=== PATIENT | female | born 1955 ===

== ENCOUNTER → 2021-06-07 11:11 | Outpatient (CLI) | payer OTHER, SELFPAY ==
[2021-06-07 15:27] LABS: COVID19 -Nasal RAPID Negative (Negative)
== END ==
PROVIDERS: Referring Provider Physician Assistant; Visit Provider Physician Assistant
DX: Z20.822 Contact with and (suspected) exposure to COVID-19 (principal); Z01.812 Encounter for preprocedural laboratory examination
CPT/HCPCS: 87635

== ENCOUNTER 2021-06-09 08:37 | Observation (INO) | payer OTHER, SELFPAY ==
[2021-06-01 12:43] VITALS: BMI 43.6
[2021-06-09] VITALS (15 sets, daily range): BP systolic 115–156; BP diastolic 60–102; PULSE 68–143; RESP 8–18; TEMP 36.2–36.8; O2SAT 80–97; BMI 43.6
--- NOTE | 2021-06-09 06:00 | DI.RAD.S_ITS ---
PROCEDURE: XR KNEE LT 1TO2V INDICATIONS: postop prosthesis placement TECHNIQUE: 2 view(s) of the knee acquired. COMPARISON: [facility] [place], [place], XR KNEE ARTHRITIC SERIES LT, 05/20/2021, 15:19. FINDINGS: Bones: Patient is status post knee joint arthroplasty. Hardware components are in expected positions. Visualized bony structures are intact. Soft tissues: Overlying postoperative changes are noted. IMPRESSION: Expected immediate postoperative appearance of right TKA. Dictated by: Khurram Bingham [facility] Interpreted: Javad Herrera MD on 06/09/2021 at 15:29 Transcribed by: SADIE on 06/09/2021 at 15:30 Approved by: Javad Herrera M.D. on 06/09/2021 at 17:04
[2021-06-09] MEDS: PREGABALIN 75 MG CAPSULE PO (09:26)
[2021-06-09] MEDS: ACETAMINOPHEN 325 MG TABLET 975 MG PO (09:26)
[2021-06-09] MEDS: CELECOXIB 200 MG CAPSULE PO (09:27)
[2021-06-09] MEDS: LACTATED RINGERS 1,000 ML 42 ML IV ×2 (09:56→13:24)
[2021-06-09] MEDS: VANCOMYCIN 1,000 MG/200 ML PIGGYBACK 200 MG IV (10:24)
--- NOTE | 2021-06-09 11:32 | PM.PREOP ---
Pre-operative Note COVID-19 COVID-19 status: Negative Interval Note History & Physical reviewed/Exam performed by Physician: Yes Changes to H&P: No
--- NOTE | 2021-06-09 11:33 | P.OP_ITS ---
Operative Date/Time/Diagnoses Date of procedure: 06/09/21 Time of procedure: 16:00 Pre-op diagnosis: left knee OA Post-op diagnosis: same Procedure & Clinicians Procedure: left total knee arthroplasty Same procedure as scheduled: Yes Indications: The patient has had progressively worsening left knee pain with radiographic changes consistent with arthritis. Non-operative management has failed and the patient has requested total knee replacement. The risks, benefits and alternatives to surgery were discussed with the patient prior to proceeding. Risks discussed included, but were not limited to, failure to relieve pain, stiffness, infection, nerve damage, deep venous thrombosis, pulmonary embolism, stroke, coma, heart attack, permanent paralysis and , as well as the potential need for eventual revision of the prosthetic. Surgeon: [facility] Manager: Janice Gasca Anesthesia Type: Spinal Operative Notes Findings: Severe left knee arthritis, good stability Closure Type: primary Specimen(s): none sent Prosthetic devices, grafts, tissues, transplants, or devices: Ruiz and nephew per [employer] BCS 2 size 6 Oxinium femur, size 4 tibia, +9 poly, 35 x 7.5 mm patella Applied: drain(s) Estimated Blood Loss (mL): 250 Blood products transfused: none Tourniquet time (min): 24 Procedure in detail: The patient was seen in the pre-operative area, where the patient identified the left knee as the operative site and this was marked with my initials. The patient received pre-operative antibiotics, and was taken to the operating room and placed on the operative table in the supine position. After satisfactory anesthesia, a interactive multimedia designer out was performed. The left leg was encircled with a tourniquet about the proximal thigh, and the leg was prepared from the toes to the tourniquet with ChloroPrep in the usual fashion and draped through sterile drapes. The leg was elevated and exsanguinated with Eschmark bandage and the tourniquet inflated to [250] mmHg pressure. The knee was approached through an approximately 18 cm incision centered over the patella and carried into the knee through a medial parapatellar arthrotomy. A portion of the medial and lateral meniscus was resected. Soft tissue was carefully mobilized around the patella the patella was measured with a caliper. There was moderate bleeding and was felt to be a venous tourniquet. We deflated the tourniquet early and reinflated to briefly during cementing. Bone Was resected from the patella and the patellar height was reconstituted with up an appropriate sized patellar component. A cover was then placed on the patella. A small amount of additional medial and lateral meniscus was resected. The distal femur was cut at 5?. A [+2] cut was used. It looked like an appropr iate distal femoral cut and the cut was made without difficulty. An extramedullary guide was used for the tibial cut. 10 mm was resected off the least affected side.The tibia was prepared. The rotation was assessed. The patient was placed in extension residual medial and lateral meniscus as well as any residual bone was carefully resected. [No] additional tibia was resected. Hemostasis was achieved especially posteriorly. Additional local was injected into the posterior capsule. The extension gap was assessed and additional releases for gap balancing were performed as necessary. It was checked with the gap account executive healthcare. The femoral component was trial was placed and the notch was finished. The rotation was assessed and the appropriate size femoral guide was placed on the distal femur and finishing cuts were made. There is no evidence of notching. The anterior, posterior and chamfer cuts were then made. The posterior osteophytes and soft tissues were then removed. The posterior capsule was injected with part of a mixture of 60 ml 0.25% Marcaine mixed with 20 ml Exparel for post operative pain control. The remainder of this mixture was injected into the capsule and subcutaneous tissues during cement curing. The tibial and femoral components were then placed and the knee placed through a range of motion. Range of motion was [0-125], with good stability throughout the range. The trials were then removed, and the tibia was finished. The bone was prepared with pulsatile lavage, and dried with a sponge. Cement was applied and the final prosthetics placed. Excess cement was removed during and after cement curing. A brief Betadine soak was performed. After confirming there was no extruded cement posteriorly, the final tibial insert was placed. The knee was copiously irrigated and the tourniquet deflated. Hemostasis was obtained with the werewolf system]. A drain was placed and brought out superolaterally. The capsule was closed with interrupted nonabsorbable suture. The subcutaneous layer was closed with barbed sutures, and the skin with a running 3-0 V-Lock suture and Surgical glue. An Aquacel Ag dressing was applied and the patient was taken to recovery having tolerated the procedure well. Complications: none Post-operative Condition: stable Disposition: Acute Care Plan for aftercare: The patient will be maintained on a standard total knee replacement protocol with weight bearing as tolerated. The patient will receive aspirin and sequential compression devices for DVT prophylaxis. The patient will be discharged home when safe for the home environment.
[2021-06-09] MEDS: CEFAZOLIN 1 GM VIAL 2 GM IV ×2 (12:05→21:47)
[2021-06-09] MEDS: TRANEXAMIC ACID 1,000 MG VIAL 1000 MG INJ ×2 (12:10→14:00)
--- NOTE | 2021-06-09 12:34 | SUR.OPER ---
Supine on padded OR bed. Pillow under head, arms secured on padded armboards <90 degree abduction. Safety belt across torso. Non-operative leg secured with tape over blanket over lower leg, gel pad under right heel. Operative leg secured in DeMayo positioner. Operative leg in control of hte Surgeon. Foam padded brace at thigh of operative leg.
[2021-06-09] MEDS: BUPIVACAINE LIPOSOME 266 MG/20 ML VIAL INJ (12:40)
[2021-06-09] MEDS: BUPIVACAINE 0.25% (PF) 60 ML, EPINEPHrine 0.3 MG INJ (12:40)
[2021-06-09] MEDS: SODIUM CHLORIDE IRRIG SOLUTION 250 ML, POVIDONE-IODINE SPONGE STICKS 1 APPLIC IRR (12:41)
[2021-06-09] MEDS: dilTIAZem 5 MG/ML SDV 25 MG IV (14:02)
--- NOTE | 2021-06-09 16:07 | SUR.PHASEI ---
1605 hrs: Dr Peng contacted by phone for advisement of increasing heart rate and respiratory rate of 8-10. Dr peng states he will contact floor and recommend that diltiazem be given PO this evening, states Pt can be transferred to Acute Care.
[2021-06-09] MEDS: OXYCODONE IR 5 MG TABLET PO (16:26)
--- NOTE | 2021-06-09 16:38 | SUR.PHASEI ---
1625 hrs: Telephone report to TATA Leon. Pt in bed transported to room 215 by RNs.
[2021-06-09] MEDS: dilTIAZem CD 180 MG CAP PO (18:20)
[2021-06-09] MEDS: LACTATED RINGERS 1,000 ML 100 ML IV (18:20)
--- NOTE | 2021-06-09 19:44 | PC.NURSE ---
1645: pt to room 215, report received from JEWEL SUPERVISOR Miles. Sandepe PAYTON at bedside doing admission. Pt very sleepy. HR controlled now. Continuous pulse ox with sats 97-98%. HR in 90's. HR irregular/pt with history of afib. Left knee with nivia wrap intact and hemovac- unclamped at 1630 by Sandeep PAYTON and draining sanguinous fluid. BOUBACAR pump intact to left knee. 1800: Pt awake enough to take oral Diltiazem. IV fluids LR started at 100 ml/hr. Assisted pt with dinner tray set up. Denies nausea. Pt reports she does have sensation in both feet and also her upper left thigh.
--- NOTE | 2021-06-09 20:39 | PM.CN ---
History of Present Illness Consult details Date Patient Seen: 06/09/21 Time Patient Seen: 16:00 Chief complaint: OPB Reason for consult: afib with RVR Requesting provider: Pamela Ruiz Narrative: Ms. Evangelista is a 65W with PMH afib, hypothyroidism, DM, NURA who came in to the hospital for an elective left knee osteoarthritis. She did not take her metoprolol or diltiazem this today. During surgery she became tachycardic, she did get 10mg IV metoprolol, then did get IV esmolol, and IV labetalol with continued tachycardia in the 120s-130s. After the procedure she received IV diltiazem with good improvement. Medicine was consulted for atrial fibrillation with RVR When the patient did get to the floor she was in afib, but her heart rate had improved to the 80s-90s. She was sleepy and lethargic from being immediately post-op. She had no chest pain or shortness of breath. Her oral medications for rate control were ordered to be given now as she had missed them earlier. Meds Home Medications and Allergies Home Medications Medication Instructions Recorded Confirmed Type acetaminophen 500 mg tablet 1,000 mg PO BID PRN 06/01/21 06/09/21 History (Acetaminophen Extra Strength) diltiazem HCl 180 mg capsule,24 180 mg PO QAM 06/01/21 06/09/21 History hr,extended release levothyroxine 200 mcg capsule 200 mcg PO DAILY 06/01/21 06/09/21 History losartan 50 mg tablet 50 mg PO BEDTIME 06/01/21 06/09/21 History metformin 500 mg tablet 500 mg PO BID 06/01/21 06/09/21 History metoprolol succinate 50 mg 50 mg PO BEDTIME 06/01/21 06/09/21 History tablet,extended release 24 hr paroxetine HCl 40 mg tablet 40 mg PO DAILY 06/01/21 06/09/21 History rivaroxaban 20 mg tablet (Xarelto) 20 mg PO DAILY 06/01/21 06/09/21 History rosuvastatin 40 mg tablet 40 mg PO BEDTIME 06/01/21 06/01/21 History Allergies Allergy/AdvReac Type Severity Reaction Status Date / Time lisinopril [From Zestril] AdvReac Intermediate Gastrointestinal Verified 06/01/21 13:10 Upset Review of Systems Review of Systems Narrative: 14 systems reviewed and negative aside from HPI Exam Vital Signs (past 8 hours): - 06/09/21 14:37 06/09/21 14:42 06/09/21 14:47 Temperature 98.3 F Pulse Rate 122 H 118 H 109 H Respiratory Rate 12 10 L 12 Blood Pressure 146/93 H 133/83 148/82 H Pulse Oximetry 80 L 95 97 06/09/21 14:52 06/09/21 14:57 06/09/21 15:12 Temperature 97.4 F L 97.1 F L Pulse Rate 114 H 117 H 120 H Respiratory Rate 11 L 12 10 L Blood Pressure 141/102 H 139/91 H 149/60 H Pulse Oximetry 97 97 95 06/09/21 15:27 06/09/21 15:43 06/09/21 15:57 Temperature 97.4 F L 97.4 F L 97.6 F Pulse Rate 128 H 143 H 68 Respiratory Rate 10 L 10 L 8 L Blood Pressure 128/92 H 130/90 143/88 H Pulse Oximetry 95 95 96 06/09/21 16:12 06/09/21 16:40 06/09/21 17:55 Temperature 97.4 F L Pulse Rate 122 H 82 95 H Respiratory Rate 11 L 12 15 Blood Pressure 152/80 H 156/81 H 153/81 H Pulse Oximetry 95 97 97 Oxygen Delivery Method Nasal Cannula Oxygen Flow Rate 2 Narrative Exam Narrative: GEN: no acute distress HEENT: moist mucous membranes, PERRL NECK: trachea midline, no JVD CV: irregular, no murmurs PULM: clear, bilaterally, no wheezes/rhonchi/rales ABD: soft, nontender, nondistended, no organomegaly EXT: warm and well perfused, no edema NEURO: awake, but lethargic [facility] Medical History (Updated 06/01/21 @ 13:46 by Love Rios RN) Afib (08/2017) Anesthesia Anxiety Breast cancer, right (~2009) Cataract, left eye Depression Diabetes (~2017) Leon's disease 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 Evangelista is a 65W with PMH permanent, chronic atrial fibrillation who presented for elective L TKA who developed intraoperative RVR. 1. Atrial fibrillation with RVR -likely secondary to not taking home meds this AM -rate improved with IV medications -patient will be reordered for home medications and get these medications tonight -no need to adjust medications for now Patient is currently rate controlled and back on home medications. No further adjustment needed currently. Will plan to sign off, please consult with further questions. Code: Full Proxy: Elysenicholas Thomas, daughter Time Spent With Patient Critical Care time: I spent a total of [] minutes of critical care time on this patient's care today; this time is exclusive of procedural time.
[2021-06-09] MEDS: DOCUSATE 100 MG CAPSULE PO (21:48)
[2021-06-09] MEDS: ATORVASTATIN 20 MG TABLET 80 MG PO (21:48)
[2021-06-09] MEDS: LOSARTAN 50 MG TABLET PO (21:48)
[2021-06-09] MEDS: ACETAMINOPHEN 325 MG TABLET 650 MG PO (21:48)
[2021-06-09] MEDS: METOPROLOL ER 50 MG TABLET PO (21:48)
[2021-06-09] MEDS: METFORMIN HCL 500 MG TABLET PO (21:48)
[2021-06-10] VITALS (8 sets, daily range): BP systolic 84–156; BP diastolic 56–80; PULSE 84–112; RESP 16–18; TEMP 35.6–36.4; O2SAT 92–95
[2021-06-10] MEDS: OXYCODONE IR 10 MG TABLET PO ×2 (00:07→03:05)
[2021-06-10] MEDS: CEFAZOLIN 1 GM VIAL 2 GM IV (03:30)
[2021-06-10 05:38] LABS: Hematocrit 40.1 % (36-46); Hemoglobin 12.9 g/dL (12.0-16.0)
[2021-06-10] MEDS: LEVOTHYROXINE 100 MCG TABLET 200 MCG PO (06:20)
[2021-06-10] MEDS: OXYCODONE IR 5 MG TABLET PO ×3 (06:20→22:21)
--- NOTE | 2021-06-10 09:12 | PM.DS.1 ---
History of Present Illness History of Present Illness Date Patient Seen: 06/10/21 Time Patient Seen: 09:12 Chief complaint: Left knee pain s/p left TKA Narrative: The patient is complaining of bymg-so-fwxhpssi left knee pain this morning. She denies any new numbness or tingling, and notes in fact that her preoperative numbness has resolved. No fevers, chills, night sweats. No nausea or vomiting. Overall she is feeling well and would like to work with physical therapy and hopefully be discharged home today Discharge Providers Provider Discharge Date: 06/10/21 Consults: 06/01/21 13:55 Consult to Anesthesiology Routine Comment: Consulting Provider: Anesthesiologist Reason for consultation: Surgeon requested re: Comorbidities 06/09/21 06:00 Consult to Anesthesiology Routine Comment: Consulting Provider: Anesthesiologist Reason for consultation: Regional block for post operative pain control 06/09/21 09:25 Consult to Respiratory Therapy Evaluate & Treat Comment: Physician Instructions: Evaluate and treat 06/09/21 16:40 Consult to Discharge Planning Routine Comment: Consult to Physical Therapy Evaluate & Treat Comment: Physician Instructions: postop TKA protocol Consult to Respiratory Therapy Evaluate & Treat Comment: Physician Instructions: Evaluate and treat Discharge provider: Janice Gasca PA-C Summary Hospital Course Discharge Diagnosis: Left knee osteoarthritis Hospital Course: Date of procedure: 06/09/21 Time of procedure: 16:00 Procedure & Clinicians Procedure: left total knee arthroplasty Same procedure as scheduled: Yes Indications: The patient has had progressively worsening left knee pain with radiographic changes consistent with arthritis. Non-operative management has failed and the patient has requested total knee replacement. The risks, benefits and alternatives to surgery were discussed with the patient prior to proceeding. Risks discussed included, but were not limited to, failure to relieve pain, stiffness, infection, nerve damage, deep venous thrombosis, pulmonary embolism, stroke, coma, heart attack, permanent paralysis and , as well as the potential need for eventual revision of the prosthetic. Surgeon: Pamela Ruiz Sales Account Specialist: Janice Gasca Anesthesia Type: Spinal Operative Notes Findings: Severe left knee arthritis, good stability Closure Type: primary Specimen(s): none sent Prosthetic devices, grafts, tissues, transplants, or devices: Ruiz and nephew per [employer]CS 2 size 6 Oxinium femur, size 4 tibia, +9 poly, 35 x 7.5 mm patella Applied: drain(s) Estimated Blood Loss (mL): 250 Blood products transfused: none Tourniquet time (min): 24 Status at Discharge Cognitive/behavioral status at discharge: oriented Functional status at discharge: uses cane/walker Overall status at discharge: patient is progressing back to baseline Exam Vital Signs (past 8 hours): - 06/10/21 03:10 Temperature 97.5 F L Pulse Rate 112 H Respiratory Rate 18 Blood Pressure 115/80 Pulse Oximetry 92 Oxygen Delivery Method Nasal Cannula Oxygen Flow Rate 2 Narrative Exam Narrative: Pleasant 65-year-old female, resting comfortably in bed, no acute distress. Dressing is clean, dry, intact. Bilateral lower extremity motor functions are grossly intact. Sensation is grossly intact to light touch in bilateral lower extremities. Calves are soft, nontender to palpation. 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 HLD (hyperlipidemia) HTN (hypertension) Hypothyroid NURA (obstructive sleep apnea) Osteoarthritis PTSD (post-traumatic stress disorder) Seizures TMJ (dislocation of temporomandibular joint) Surgical History History of cardiac cath (~04/2021) History of cholecystectomy History of hysterectomy History of lumpectomy of right breast Hx of laparoscopy Hx of tonsillectomy Social History household members: none Smoking Status: Former smoker alcohol intake: current Discharge Assessment & Plan Assessment and Plan Assessment: Stable status post left total knee arthroplasty Plan of Treatment: -mobilize with PT. Weightbearing as tolerated with front wheel walker -continue with current pain regimen -resume Xarelto on 06/11/2021 -planning on DC home today when cleared by PT and hospitalist Discharge Plan Discharge Plan Patient Disposition: Home Discharge orders & Medications Discharge Orders: Discharge (Order); Ordered 06/10/21 Ordered By: Janice A Walker Prescriptions: New acetaminophen 500 mg capsule 500 mg PO Q4H PRN (Reason: fever or pain) Qty: 90 RF: 0 docusate sodium 100 mg Capsule 100 mg PO BID PRN (Reason: Constipation from narcotic pain med) Qty: 20 RF: 0 oxycodone 10 mg Tablet See Rx Instructions .ROUTE .COMPLEX PRN (Reason: Pain, Severe (7-10)) Qty: 42 RF: 0 Continued losartan 50 mg Tablet 50 mg PO BEDTIME RF: 0 metformin 500 mg Tablet 500 mg PO BID RF: 0 diltiazem HCl 180 mg Capsule,Extended Release 24 Hr 180 mg PO QAM RF: 0 metoprolol succinate 50 mg Tablet Extended Release 24 Hr 50 mg PO BEDTIME RF: 0 paroxetine HCl 40 mg Tablet 40 mg PO DAILY RF: 0 rosuvastatin 40 mg Tablet 40 mg PO BEDTIME RF: 0 Xarelto 20 mg Tablet 20 mg PO DAILY RF: 0 levothyroxine 200 mcg Capsule 200 mcg PO DAILY RF: 0 Discontinued acetaminophen [Acetaminophen Extra Strength] 500 mg Tablet 1,000 mg PO BID PRN (Reason: Pain) RF: 0 Follow up/Referrals: Pamela Ruiz MD [Physician] - (10-14 days for postoperative visit) Diet/Activity/Treatments Diet: Diet as Tolerated and Regular Other treatments: Medications: -OTC Tylenol 500 mg 1 tablet every 4 hours as needed for pain/fever. Max 6 tablets per day. -Oxycodone 10 mg take 0.5-1 tablets every 4 hours as needed for moderate-severe pain (narcotic pain medication). -As needed medications: -Ducolax and /or MiraLax as needed for constipation from narcotic pain medications. -Pepcid AC as needed for stomach upset (usually from aspirin or ibuprofen). -Resume your normal Xarelto (this will prevent blood clots) Dressing/Wound care: -Remove the Clif wrap 48 hours after surgery. -Keep Dayan dressing in place until postoperative follow-up office visit. -Okay to shower. Keep wound out of direct water stream. No soaking or submerging until all the scabs fall off (approximately 6 weeks). -Please call the office if dressing becomes wet, soiled, or saturated. Activities: -Weight-bearing as tolerated. Use front wheeled walker, and progress to cane when safe. -Continue with home exercises as directed by your physical therapist. -Elevate ?toes above the nose if you have significant swelling in your lower leg. (A wedge pillow is easiest.) -Ice your incision as needed for pain/inflammation/swelling. Protect your skin with a folded pillowcase. Follow-up: -Follow-up with your surgeon or PA in the office in 10-14 days after surgery. -Follow-up with your surgeon 6 weeks postoperatively. Call the office if you have chest pain, shortness of breath, significant swelling that will not resolve with elevating, fever over 101?, significantly worsening pain. [facility]: [phone] Skin/Wound/Dressing Care Report to your healthcare provider any signs of infection, such as:: chills, fever, night sweats, unusual drainage and unusual redness Visit Report/Discharge Packet Instructions: DI for Knee Replacement Stand Alone Forms: Surgery Discharge Discharge Data Attending Provider: Pamela Ruiz VTE Deep Vein Thrombosis/Pulmonary Embolism Present on Admission: No
[2021-06-10] MEDS: ACETAMINOPHEN 325 MG TABLET 650 MG PO ×3 (09:14→21:23)
[2021-06-10] MEDS: PARoxetine 20 MG TABLET 40 MG PO (09:15)
[2021-06-10] MEDS: dilTIAZem CD 180 MG CAP PO (09:15)
[2021-06-10] MEDS: METFORMIN HCL 500 MG TABLET PO ×2 (09:15→21:24)
[2021-06-10] MEDS: DOCUSATE 100 MG CAPSULE PO ×2 (09:16→21:24)
--- NOTE | 2021-06-10 10:42 | CM.DANOTE ---
DCP: Case received, EMR reviewed and met with patient. Introduced self and role. Was able to obtain information regarding patient's baseline activity status prior to her surgery, as well as her current living situation. DCP assessment completed with information currently available. Patient is a 65 year old female who admitted yesterday morning to the care of the orthopedic team. PCP: Dr. Ballesteros, Residency clinic at [facility]. Payer: confirmed: [employer]. Patient came to the hospital via private vehicle for a surgical procedure. Patient had left knee arthroplasty. Patient has history of osteoarthritis. Met with patient in her room. She is alert and oriented, pleasant. Patient resides in [facility] alone. 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 Patient does have a walker for home use. She is independent at her baseline. [facility] was already ordered for patient from the orthopedic office according to patient. Patient indicated her sister, Debora, should be able to assist her when she goes home. P: Patient has discharge orders for home today. Will ask Angelika assistant professor of physics, to fax [facility] a DC Summary. She will work again with P.T. before discharge as well. Nancy Marte RN/Fraud Analyst Discharge Planning/Care Management CM Discharge Assessment Start: 06/10/21 10:39 Freq: Status: Active Protocol: Document 06/10/21 10:39 (Rec: 06/10/21 10:42 [id number]) Discharge Planning Assessment Assigned [place] Nancy Marte RN/Fraud Analyst Advance Directives? Yes Advance Directives on File No History Provided By Patient,Medical Record Prior Living Arrangements House Household Members none Type of transporation used prior to Drives own vehicle admit DME Already Rented / Owned FWW / Walker Patient/Family Preference Home with Home Health Comment [facility] has been prearranged by orthopedic office. Barriers to Discharge No Discharge Plan Home with Home Health Transportation Arrangement Friend or family member Referrals Initiated None needed Whiteboard Updated in Patient Room with Yes name and ext. # of Oyster Tonger Review Status In Process Next Review Type Continued Stay Review Pre-Anesthesia Assessment Start: 06/01/21 12:43 Freq: Status: Active Protocol: Document 06/01/21 12:43 CAB (Rec: 06/01/21 13:55 CAB [id number]) Pre-Anesthesia Assessment Patient Information Reviewed Via Phone Assessment Assessment Completed With Patient H&P Completed Within 30 Days Yes Diagnostic Results BMP/CMP,CBC,EKG Comment Outside labs/EKG scanned, COVID screen-needs to schedule Primary Care Provider Sara Seen Specialist in Last 12 Months Yes Specialist Seen Printed Circuit Board Pcb Designer,Orthopedist Primary Language Maori Abstractor Required No Height 5 ft 4 in Weight 254 lb Body Mass Index (BMI) 43.6 Hearing Ability Normal Visual Assist Glasses Dentition Type Teeth, Natural Present Barriers to Learning None Hx Anesthesia Reactions No: NURA-does not tolerate CPAP Hx Family Anesthesia Reaction No Hx Malignant Hyperthermia No Hx Blood Transfusions No Anesthesia Review Requested Yes: PAC courtesy re: Comorbidities alcohol intake current alcohol intake frequency holidays/special occasions only Smoking Status Former smoker how long ago did patient quit smoking Quit in high school Substance Use Type does not use Pain Present Pain Reported Musculoskeletal Symptoms Abnormal Gait,Back Pain, Difficulty Walking,Joint Pain History of Falling (Recent or History of Yes ) Patient is completely paralyzed or No completely immobile Prosthesis or Orthotic Device Front Wheel Walker Mental Status Oriented to own ability Is patient on oxygen? No Does patient have HAN/SOB No Hx Sleep Apnea Yes: Does not tolerate CPAP CPAP/BIPAP use prescribed not used Currently Taking a Beta Ivan Yes: Metoprolol Can You Climb a Flight of Stairs Without No: SOB r/t hip pain SOB Hx Chest Pain Yes Hx SOB No Hx Syncope or Dizziness Yes: Syncope, pt feels r/t anxiety, afib, last episode within the year Anti-Coagulant Therapy Yes: Xarelto-pt advised to hold 5-[address] Ruiz Has a Printed Circuit Board Pcb Designer Yes: Dr. Silver visit03/03/21 Cardiac Testing Yes: Cardiac cath 04/13/21 80% stenosis mid LCx-medical management Hx Pacemaker/ICD No Pacemaker Rep Required? No Cardiac Clearance Received Yes Comment Cardiac records scanned Diet Type At Home Regular dysphagia No Gastrointestinal Symptoms Constipation,Cramping Urinary Catheter Present No Hx Urinary Self Catheterization No Diabetes Yes: Pt does not check blood sugar Patient No Lactating No Hx Drug Resistant Organism No Presence of External or Internal Medical No Devices Have you had any close contact with No someone diagnosed with COVID-19? Received a COVID vaccine? Yes Received all doses? Yes Marital Status Single Lives With none Prior Living Arrangements House Number of Floors (Floors) Two Floors Support System Child/Children,Sibling(s) Does the Patient Have Assistance After Yes: Sister, daughter, and Surgery granddaughter will assist Patient Discharge Plan Description Other Comment Pt will dc to sister's house initially Additional comment Pt not advised on length of stay per surgeon Feels Safe in Current Environment Yes Been Physically Hurt or Threatened By a No Person in Current Environment Do you have thoughts of harming yourself None or others? Are you currently considering suicide? No Do you have a plan to hurt yourself or No Plan others? Do You Have Any Spiritual Beliefs That No May Affect Your HC Choices? Do You Have Any Cultural Practices That No May Affect Your HC Choices? Comment Presbyterian Who Can We Speak to About Patient's Care Family, friends Identifying Code for Release of Patient Declines to issue Information Health Care Proxy/Next of Kin Elyse (daughter) Health Care Proxy Emergency Contact Name Debora (sister) Emergency Contact Advance Directives? Yes Advance Directives on File No Requested Patient Bring Advanced Yes Directives DOS Power of Business Controller No PAC Instructions Diabetes instructions,Do not shave/clip surgical site, Durable medical equipment, Medications to take/avoid, Nasal antibiotic,No ETOH/ petroleum product on skin DOS, NPO,Post-op transportation,Pre -surgical wash,Sensory aids, Sturdy shoes/comfortable clothes,Do not bring valuables and remove jewelry
--- NOTE | 2021-06-10 11:11 | CM.DPNOTE ---
Faxed DC summary per nelson to [facility] and received fax conf. Angelika Chen CM Asst.
--- NOTE | 2021-06-10 11:15 | PT.IIE ---
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 HLD (hyperlipidemia) HTN (hypertension) Hypothyroid NURA (obstructive sleep apnea) Osteoarthritis PTSD (post-traumatic stress disorder) Seizures TMJ (dislocation of temporomandibular joint) Physical Therapy Inpatient Evaluation/Re-Eval M1 PT/OT-IP Prior Functional Status Start: 06/10/21 13:11 Freq: NEEDED Status: Active Protocol: Document 06/10/21 11:15 AB (Rec: 06/10/21 13:37 AB [id number]) Medical Review Prior Functional Status Medical History Reviewed Yes Communication able to make needs known Mobility and Gait pt sated that she is modified independent with all mobilities and ambulation using 4WW Social History Household Members none Living Arrangements House Number of Floors (Floors) One Floor Number of Stairs To Enter/Railing? 4 steps R rail ascending Home Environment High Toilet,Walk in Shower Home Equipment Four Wheel Walker,Hand Held Shower,Grab Bars In Shower Additional Social History Comment pt plans to sleep on a recliner for the first few days pt plans to go to her sister's house and stay in there for 1 day and then go to her daughter's house for the weekend and then go to her house where she will be alone pt has a 4WW but stated that her sister has a FWW that she can borrow if needed M2 PT-IP Current Condition Start: 06/10/21 13:11 Freq: NEEDED Status: Active Protocol: Document 06/10/21 11:15 AB (Rec: 06/10/21 13:37 AB [email or web address]) Physical Therapy Current Condition Current Condition Evaluation Date 06/10/21 Treatment Diagnosis s/p L TKA; difficulty in walking Onset Date 06/09/21 M3 PT-IP Subjective Start: 06/10/21 13:11 Freq: NEEDED Status: Active Protocol: Document 06/10/21 11:15 AB (Rec: 06/10/21 13:37 [id number]) Subjective Physical Therapy Visit Type Type Initial Evaluation Visit Start Time 11:15 Visit Stop Time 12:20 Total Visit Minutes 40 Number of OPERATIONS ADVISOR Visits 0 Physical Therapy Visit Comments Patient Comments agreeable to do PT Therapy Pain Assessment Pain When Pain Assessed At Rest Pain Present Pain Present Pain Reported Location Left Knee Intensity 8 Scale Used Numeric (0 - 10) Pain Management Techniques Apply Cold,Distraction, Modification of Treatment,Re- positioning,Timing of Activity with Medications M4 PT-IP Mobility and Gait Start: 06/10/21 13:11 Freq: NEEDED Status: Active Protocol: Document 06/10/21 11:15 AB (Rec: 06/10/21 13:37 [id number]) PT-Bed Mobility Assessment Supine to Sit Supine to Sit Standby Assistance PT-Transfer Assessment Sit to and From Stand Sit to and from Stand Minimal Assistance,1 Person Assistance Equipment Transfer Assistive Device Gait Belt,Front Wheeled Walker Orthotic/Prosthetic Devices or Brace: No Transfers Transfer Destination Chair Transfer Technique ambulated Transfer Ability Level of Assist Contact Guard Assistance, Minimal Assistance,1 Person Assistance,Use of Upper Extremities Comments Mobility Comments BP in supine: 115/51. completed supine to sit SBA. required increase time to complete task. pt was able to sit on EOB SBA. c/o initial lightheadedness that went away . BP in sittin/73. pt completed sit to stand min A and cues and ambulated to the chair ~ 12 ft min A and cues. pt with increase time needed to follow instructions and stated that she is lightheaded again and seems a little pale but was able to walk to the chair. BP checked after ambulation sitting on chair: 108/49. positioned pt on chair. call light and table placed within reach. informed pt and sister in room regarding caregiver training at ~ 130/2 pm later today and agreed. informed nurse regarding pt's mobility, decrease in BP with lightheadedness and plan for caregiver training later today but at this time, pt is not ready to d/c and will reassess this afternoon. Gait Assessment Gait Gait Assistance Required: Contact Guard Assist,Minimum Assistance Distance (Feet) 12 Able to Maintain Weight Bearing Status Yes During Gait Assistive Devices Assistive Device Gait Belt,Front Wheeled Walker Orthotic/Prosthetic Devices or Brace: No PT-Balance Assessment Sitting Balance and Reactions Static Sitting Balance Ability Good Dynamic Sitting Balance Ability Good Standing Balance and Reactions Static Standing Balance Ability Fair Dynamic Standing Balance Ability Fair Device Used FWW M5 PT-IP Objective Assessments Start: 06/10/21 13:11 Freq: NEEDED Status: Active Protocol: Document 06/10/21 11:15 AB (Rec: 06/10/21 13:37 AB [id number]) Orientation Orientation/Cognition Level of Alertness Alert Orientation Name,Place,Situation Language Function Ability No Deficits Noted Safety Awareness Decreased Safety Awareness Gross Range of Motion Lower Extremity ROM Impairments L knee flexion: ~ 60 deg L knee extension: ~ 15 deg less to 0 Strength Lower Extremity Strength Assessment Left Impaired Hip 4/5 Knee 4-/5 Sensation Assessment Sensation Gross Sensation WNL Muscle Tone Muscle Tone WNL Yes M6 PT-IP Treatment Start: 06/10/21 13:11 Freq: NEEDED Status: Active Protocol: Document 06/10/21 11:15 AB (Rec: 06/10/21 13:37 AB [email or web address]) Physical Therapy Treatment Education Education Provided Precautions,Weight Bearing Status,Post-Op Packet,Safety M7 PT-IP Assessment and Plan Start: 06/10/21 13:11 Freq: NEEDED Status: Active Protocol: Document 06/10/21 11:15 AB (Rec: 06/10/21 13:37 AB [email or web address]) PT Summary Assessment and Plan Potential Rehabilitation Potential Good Status of Condition at Evaluation Evolving Summary Impairments Pain,ROM,Strength,Balance, Coordination,Sensation,Tone, Cognition,Bed Mobility, Transfers,Gait,Activity Tolerance Assessment Summary pt requiring CGA to min A with mobility using FWW but unable to tolerate much activity with c/o lightheaded and decrease BP after ambulation. caregiver training set up for this afternoon ~ 130-2 pm. will continue to assess progress and safety. Goals Bed Mobility Goal Independent Transfer Goal Independent,Front Wheeled Walker,Four Wheeled Walker Gait Goal Independent,Front Wheel Walker ,Four Wheel Walker Gait Distance 150 Other Goals up/down 4 steps R rail ascending SBA Days to Meet Goals 5 Frequency of Treatment Frequency Of Treatment Twice a Day Treatment Plan Physical Therapy Treatment Plan Bed Mobility Training,Transfer Training,Gait Training, Therapeutic Exercise,Balance Retraining,Post Op Education, Discharge Planning,Hot or Cold Pack,Neuromuscular Re-ed, Coordination Retraining,Manual Therapy Weight Bearing Status Weight Bearing Status Weight Bear as Tolerated Allowed Weight Bearing Amount (enter % LLE: WBAT or #) (%) Recommendations To Nursing Amount of Assist Needed 1 Person Assist Discharge Recommendations PT Discharge Recommendations Home with 20/02 Assist Available,Home Health Transportation Needs at Discharge Private Vehicle
--- NOTE | 2021-06-10 15:46 | PT-IP ANOTE ---
Attempted to see pt at 13:45, but BP reclined in chair: 89/42. RN notified. Checked back on pt at 15:46, pt refused PT this PM due to high level of fatigue but agreed to work w/ therapy tomorrow morning. Offered that she walked to bathroom w/ RN recently, but is now wanting to rest.
--- NOTE | 2021-06-10 17:27 | PC.NURSE ---
Addendum entered by Jazmin Pham R.N. 06/10/21 18:23: Hemovac discontinued as ordered. Original Note: 1515 AC note: Patient BP 84/56, hypotensive prior to getting up with PT. Prior therapy session, patient became dizzy, hypotensive and pale. Second therapy held, no caregiver training, on hold until tomorrow. ASHLEY Gasca made aware. New order obtain to continue IVF until increasing fluid intake, adequate U/O, and stable VSS. Losartan to be held for HS dose, continue Diltiazem and Metoprolol as ordered. Discharge order cancelled. PT to resume when stable. 1600: Patient up to BR, no dizziness, asymptomatic. 1700: Up to BR, asymptomatic, BP 145/78 HR 90. Voiding QS clear yellow urine. SL
[2021-06-10] MEDS: ATORVASTATIN 20 MG TABLET 80 MG PO (21:23)
[2021-06-10] MEDS: METOPROLOL ER 50 MG TABLET PO (21:24)
[2021-06-11] MEDS: OXYCODONE IR 10 MG TABLET PO (03:00)
[2021-06-11] MEDS: LEVOTHYROXINE 100 MCG TABLET 200 MCG PO (06:08)
[2021-06-11] MEDS: METFORMIN HCL 500 MG TABLET PO (08:27)
[2021-06-11] MEDS: PARoxetine 20 MG TABLET 40 MG PO (08:27)
[2021-06-11] MEDS: ACETAMINOPHEN 325 MG TABLET 650 MG PO (08:27)
[2021-06-11] MEDS: dilTIAZem CD 180 MG CAP PO (08:27)
[2021-06-11] MEDS: DOCUSATE 100 MG CAPSULE PO (08:27)
[2021-06-11] MEDS: SODIUM CHLORIDE 0.9% FLUSH 10 ML IV (08:28)
[2021-06-11 09:05] VITALS: BP 112/73; PULSE 78; RESP 16; TEMP 35.8; O2SAT 92
[2021-06-11] MEDS: OXYCODONE IR 5 MG TABLET PO ×2 (09:42→13:59)
--- NOTE | 2021-06-11 10:42 | PT.IPTN ---
Current Diagnoses Unilateral primary osteoarthritis, left knee (06/09/21) Surgery Performed Operation Date: 06/09/21 11:15 Actual Procedures p Total Knee Arthroplasty(Left) - Pamela Ruiz MD Physical Therapy Treatment Note M2 PT-IP Current Condition Start: 06/10/21 13:11 Freq: NEEDED Status: Active Protocol: Document 06/10/21 11:15 AB (Rec: 06/10/21 13:37 AB [email or web address]) Physical Therapy Current Condition Current Condition Evaluation Date 06/10/21 Treatment Diagnosis s/p L TKA; difficulty in walking Onset Date 06/09/21 M3 PT-IP Subjective Start: 06/10/21 13:11 Freq: NEEDED Status: Active Protocol: Document 06/11/21 10:18 KS (Rec: 06/11/21 12:14 KS [id number]) Subjective Physical Therapy Visit Type Type Treatment Note Visit Start Time 10:18 Visit Stop Time 10:42 Total Visit Minutes 24 Number of METER AND SERVICE LINE INSPECTOR Visits 1 Physical Therapy Visit Comments Patient Comments agreeable to do PT M4 PT-IP Mobility and Gait Start: 06/10/21 13:11 Freq: NEEDED Status: Active Protocol: Document 06/11/21 10:18 KS (Rec: 06/11/21 12:14 KS [id number]) PT-Bed Mobility Assessment Sit to Supine Sit to Supine Minimal Assistance,1 Person Assistance Scooting Scooting to Edge of Bed Contact Guard Assistance PT-Transfer Assessment Sit to and From Stand Sit to and from Stand Contact Guard Assistance,1 Person Assistance,Use of Upper Extremities Equipment Transfer Assistive Device Gait Belt,Front Wheeled Walker Orthotic/Prosthetic Devices or Brace: No Transfers Transfer Destination Bed,Toilet Transfer Technique ambulated Transfer Ability Level of Assist Contact Guard Assistance, Minimal Assistance,1 Person Assistance,Use of Upper Extremities Comments Mobility Comments Pt in chair upon arrival from therapy. CGA for scooting EOC and CGA w/ cues for sit<>stand w/ FWW. Pt then ambulated ~40 ft w/ FWW and CGA into hallway and then to bathroom. Min A for stand<>sit on toilet . She then requested to return to bed due to pain and fatigue. Pt ambulated back to bed w/ FWW and CGA for stand<> sit, Min A for LE guidance into bed. Pt left in bed w/ all needs in reach and sister in room. Gait Assessment Gait Gait Assistance Required: Contact Guard Assist,1 Person Assist Distance (Feet) 40 Able to Maintain Weight Bearing Status Yes During Gait Assistive Devices Assistive Device Gait Belt,Front Wheeled Walker Orthotic/Prosthetic Devices or Brace: No Gait Deviations General Gait Pattern Antalgic,Decreased Stride Length,Decreased Feet Clearance,Step-to Gait Factors Limiting Gait Function Factors Limiting Gait Function Decreased Activity Tolerance, Decreased Strength,Pain Comments Gait Comments Pt ambulated ~40 ft total w/ FWW and CGA. Pt limited in ambulation distance and has decreased foot clearance and stride due to pain and weakness. Stair Climbing Assessment Comments Stair Climbing Comments Not assessed, pt will need to complete 4 steps R rail w/ caregiver (sister) prior to d/ c. PT-Balance Assessment Sitting Balance and Reactions Static Sitting Balance Ability Good Dynamic Sitting Balance Ability Good Standing Balance and Reactions Static Standing Balance Ability Fair Dynamic Standing Balance Ability Fair Device Used FWW M5 PT-IP Objective Assessments Start: 06/10/21 13:11 Freq: NEEDED Status: Active Protocol: Document 06/10/21 11:15 AB (Rec: 06/10/21 13:37 AB [id number]) Orientation Orientation/Cognition Level of Alertness Alert Orientation Name,Place,Situation Language Function Ability No Deficits Noted Safety Awareness Decreased Safety Awareness Gross Range of Motion Lower Extremity ROM Impairments L knee flexion: ~ 60 deg L knee extension: ~ 15 deg less to 0 Strength Lower Extremity Strength Assessment Left Impaired Hip 4/5 Knee 4-/5 Sensation Assessment Sensation Gross Sensation WNL Muscle Tone Muscle Tone WNL Yes M6 PT-IP Treatment Start: 06/10/21 13:11 Freq: NEEDED Status: Active Protocol: Document 06/11/21 10:18 KS (Rec: 06/11/21 12:14 KS [id number]) Physical Therapy Treatment Education Education Provided Precautions,Weight Bearing Status,Post-Op Packet,Safety M7 PT-IP Assessment and Plan Start: 06/10/21 13:11 Freq: NEEDED Status: Active Protocol: Document 06/11/21 10:18 KS (Rec: 06/11/21 12:14 KS [id number]) PT Summary Assessment and Plan Potential Rehabilitation Potential Good Status of Condition at Evaluation Evolving Summary Impairments Pain,ROM,Strength,Balance, Coordination,Sensation,Tone, Cognition,Bed Mobility, Transfers,Gait,Activity Tolerance Assessment Summary Pt conitnues to be limited in mobility by low tolerance for activity, pain, and weakness. CGA to Min A for bed mobility, transfers, and ambulation. Able to tolerate ~40 ft ambulation w/ FWW. Pt will need to complete caregiver training as well as stair training w/ her sister prior to d/c. If caregiver training is successful, pt will be able to d/c home w/ assistance. Goals Bed Mobility Goal Independent Transfer Goal Independent,Front Wheeled Walker,Four Wheeled Walker Gait Goal Independent,Front Wheel Walker ,Four Wheel Walker Gait Distance 150 Other Goals up/down 4 steps R rail ascending SBA Days to Meet Goals 5 Frequency of Treatment Frequency Of Treatment Twice a Day Treatment Plan Physical Therapy Treatment Plan Bed Mobility Training,Transfer Training,Gait Training, Therapeutic Exercise,Balance Retraining,Post Op Education, Discharge Planning,Hot or Cold Pack,Neuromuscular Re-ed, Coordination Retraining,Manual Therapy Weight Bearing Status Weight Bearing Status Weight Bear as Tolerated Allowed Weight Bearing Amount (enter % LLE: WBAT or #) (%) Recommendations To Nursing Amount of Assist Needed 1 Person Assist Discharge Recommendations PT Discharge Recommendations Home with 20/02 Assist Available,Home Health Transportation Needs at Discharge Private Vehicle
--- NOTE | 2021-06-11 14:26 | PT.IPTN ---
Current Diagnoses Unilateral primary osteoarthritis, left knee (06/09/21) Surgery Performed Operation Date: 06/09/21 11:15 Actual Procedures p Total Knee Arthroplasty(Left) - Pamela Ruiz MD Physical Therapy Treatment Note M2 PT-IP Current Condition Start: 06/10/21 13:11 Freq: NEEDED Status: Active Protocol: Document 06/10/21 11:15 AB (Rec: 06/10/21 13:37 AB [id number]) Physical Therapy Current Condition Current Condition Evaluation Date 06/10/21 Treatment Diagnosis s/p L TKA; difficulty in walking Onset Date 06/09/21 M3 PT-IP Subjective Start: 06/10/21 13:11 Freq: NEEDED Status: Active Protocol: Document 06/11/21 14:01 KS (Rec: 06/11/21 14:38 KS [id number]) Subjective Physical Therapy Visit Type Type Treatment Note Visit Start Time 14:01 Visit Stop Time 14:26 Total Visit Minutes 25 Number of IMMIGRATION JUDGE Visits 2 Physical Therapy Visit Comments Patient Comments agreeable to do PT M4 PT-IP Mobility and Gait Start: 06/10/21 13:11 Freq: NEEDED Status: Active Protocol: Document 06/11/21 14:01 KS (Rec: 06/11/21 14:38 KS [id number]) PT-Transfer Assessment Sit to and From Stand Sit to and from Stand Contact Guard Assistance,1 Person Assistance,Use of Upper Extremities Equipment Transfer Assistive Device Gait Belt,Front Wheeled Walker Orthotic/Prosthetic Devices or Brace: No Transfers Transfer Destination Wheelchair Transfer Technique ambulated w/ FWW Transfer Ability Level of Assist Contact Guard Assistance, Minimal Assistance,1 Person Assistance,Use of Upper Extremities Comments Mobility Comments Pt in chair upon arrival from therapy w/ sister in room and ready for stair and caregiver training. Instructed pts sister how to apply gaitbelt and guarding for sit<>stand. Pt sit<>stand from chair w/ FWW CGA and ambulated ~10 ft to w/c stand<>sit CGA and cues for hand placement. Pt transported in w/c to training stairs for energy conservation. Demonstrated to pts sister how to assist pt on stairs. Pt then ascended/ descended 3 step w/ R rail ascending and SPC and CGA-Min A and cues provided by pts sister. Pt demonstrated more difficulty descending, but pt and sister state they have SPC at home and feel safe to complete stairs into house. Pt transported back to room in w /c and left in w/c for d/c. Pt will benefit from HHPT which she reports will begin next week. Gait Assessment Gait Gait Assistance Required: Contact Guard Assist,1 Person Assist Distance (Feet) 20 Able to Maintain Weight Bearing Status Yes During Gait Assistive Devices Assistive Device Gait Belt,Front Wheeled Walker Orthotic/Prosthetic Devices or Brace: No Gait Deviations General Gait Pattern Antalgic,Decreased Stride Length,Decreased Feet Clearance,Step-to Gait Factors Limiting Gait Function Factors Limiting Gait Function Decreased Activity Tolerance, Decreased Strength,Pain Comments Gait Comments Please refer to mobility section for details. Stair Climbing Assessment Evaluation Level of Assist On Stairs Contact Guard Assistance, Minimal Assistance,1 Person Assistance Devices Stair Climbing Assistive Devices Straight Cane,Right Railing Technique/Endurance Stair Climbing Direction Ascend and Descend Stair Climbing Technique Step to Step Number of Steps Climbed 3 Stair Climbing Set # Repetitions (reps) 1 Comments Stair Climbing Comments Pt ascended/descended 3 steps w/ R rail ascending and SPC w/ step to pattern and CGA to Min A and cues for sequencing. Pt and her sister state they feel comfortable to complete stairs at home, however pt did report some difficulty w/ descent. PT-Balance Assessment Sitting Balance and Reactions Static Sitting Balance Ability Good Dynamic Sitting Balance Ability Good Standing Balance and Reactions Static Standing Balance Ability Fair Dynamic Standing Balance Ability Fair Device Used FWW M5 PT-IP Objective Assessments Start: 06/10/21 13:11 Freq: NEEDED Status: Active Protocol: Document 06/10/21 11:15 AB (Rec: 06/10/21 13:37 AB [id number]) Orientation Orientation/Cognition Level of Alertness Alert Orientation Name,Place,Situation Language Function Ability No Deficits Noted Safety Awareness Decreased Safety Awareness Gross Range of Motion Lower Extremity ROM Impairments L knee flexion: ~ 60 deg L knee extension: ~ 15 deg less to 0 Strength Lower Extremity Strength Assessment Left Impaired Hip 4/5 Knee 4-/5 Sensation Assessment Sensation Gross Sensation WNL Muscle Tone Muscle Tone WNL Yes M6 PT-IP Treatment Start: 06/10/21 13:11 Freq: NEEDED Status: Active Protocol: Document 06/11/21 14:01 KS (Rec: 06/11/21 14:38 KS [id number]) Physical Therapy Treatment Education Education Provided Precautions,Weight Bearing Status,Post-Op Packet,Safety Other Treatments Other Treatment Performed Completed caregiver training. M7 PT-IP Assessment and Plan Start: 06/10/21 13:11 Freq: NEEDED Status: Active Protocol: Document 06/11/21 14:01 KS (Rec: 06/11/21 14:38 KS [id number]) PT Summary Assessment and Plan Potential Rehabilitation Potential Good Status of Condition at Evaluation Evolving Summary Impairments Pain,ROM,Strength,Balance, Coordination,Sensation,Tone, Cognition,Bed Mobility, Transfers,Gait,Activity Tolerance Assessment Summary Pt continues to have low tolerance for activity and weakness, requiring CGA to Min A. Completed caregiver training w/ pts sister who is able to apply gaitbelt and provide appropriate cues and assist for transfers, ambulation, and stairs. Pt would benefit from [facility] stair training but stated she feels safe and ready to return home w/ HHPT. Goals Bed Mobility Goal Independent Transfer Goal Independent,Front Wheeled Walker,Four Wheeled Walker Gait Goal Independent,Front Wheel Walker ,Four Wheel Walker Gait Distance 150 Other Goals up/down 4 steps R rail ascending SBA Days to Meet Goals 5 Frequency of Treatment Frequency Of Treatment Twice a Day Treatment Plan Physical Therapy Treatment Plan Bed Mobility Training,Transfer Training,Gait Training, Therapeutic Exercise,Balance Retraining,Post Op Education, Discharge Planning,Hot or Cold Pack,Neuromuscular Re-ed, Coordination Retraining,Manual Therapy Weight Bearing Status Weight Bearing Status Weight Bear as Tolerated Allowed Weight Bearing Amount (enter % LLE: WBAT or #) (%) Recommendations To Nursing Amount of Assist Needed 1 Person Assist Discharge Recommendations PT Discharge Recommendations Home with 20/02 Assist Available,Home Health Transportation Needs at Discharge Private Vehicle
--- NOTE | 2021-06-11 14:57 | PC.NURSE ---
Went over dc instructions with patient,questions answered. Rx sent electronically to pharmacy. Patient taken via wc to vehivle driven by patients sister. Patient had all belongings.
== END 2021-06-11 14:50 | disposition home or self-care (01) ==
LOC: OR 08:40 → AC 08:41
PROVIDERS: Admitting Provider Orthopaedic Surgery; Referring Provider Orthopaedic Surgery; Visit Provider Orthopaedic Surgery
PROC: 0SRD0JZ Replacement of Left Knee Joint with Synthetic Substitute, Open Approach (ICD-10-PCS; CPT 27447; principal; 2021-06-09 11:15)
DX: M17.12 Unilateral primary osteoarthritis, left knee (principal); I95.81 Postprocedural hypotension; I48.91 Unspecified atrial fibrillation; E03.9 Hypothyroidism, unspecified; E11.9 Type 2 diabetes mellitus without complications; G47.33 Obstructive sleep apnea (adult) (pediatric); Z79.84 Long term (current) use of oral hypoglycemic drugs
CPT/HCPCS: 27447; 36415; 73560; 85014; 85018; 97116; 97162; 97530; C1776; G0378; C9290; J0171; J0690; J1100; J1170; J2250; J2405; J2704; J3010

== ENCOUNTER 2023-07-27 10:20 | Day surgery (SDC) | payer OTHER, SELFPAY ==
[2021-06-09 16:44] VITALS: BMI 43.6
[2023-07-13 09:32] VITALS: BMI 43.4
[2023-07-27 11:25] VITALS: BP 100/66; PULSE 83; RESP 17; TEMP 36.4; O2SAT 96
== END 2023-07-27 10:25 | disposition home or self-care (01) ==
LOC: OR 10:21 → AC 11:33
PROVIDERS: Referring Provider Orthopaedic Surgery; Visit Provider Orthopaedic Surgery
DX: M17.11 Unilateral primary osteoarthritis, right knee (principal); Z53.09 Procedure and treatment not carried out because of other contraindication

== ENCOUNTER 2024-05-16 17:06 | Inpatient (IN) | payer OTHER, SELFPAY ==
[2021-06-09 16:44] VITALS: BMI 43.6
[2024-05-06 08:42] VITALS: BMI 43.4
[2024-05-16] VITALS (15 sets, daily range): BP systolic 108–160; BP diastolic 55–99; PULSE 90–121; RESP 12–18; TEMP 36.2–37.1; O2SAT 94–98; BMI 43.4
--- NOTE | 2024-05-16 06:00 | DI.RAD.S_ITS ---
PROCEDURE: XR KNEE RT 1TO2V INDICATIONS: TKA TECHNIQUE: 2 view(s) of the knee acquired. COMPARISON: [facility], CR, XR KNEE ARTHRITIC SERIES BI, 05/09/2024, 13:58. [facility], PIPO, XR KNEE LT 1TO2V, 06/09/2021, 14:58. FINDINGS: Bones: Patient is status post knee joint arthroplasty. Hardware components are in expected positions. Visualized bony structures are intact. Soft tissues: Overlying postoperative changes are noted. IMPRESSION: Expected post-operative appearance of a knee arthroplasty. Dictated by: Lj Sage M.D. on 05/16/2024 at 17:16 Approved by: Lj Sage M.D. on 05/16/2024 at 17:18
[2024-05-16] MEDS: ACETAMINOPHEN 325 MG TABLET 975 MG PO (10:16)
[2024-05-16] MEDS: VANCOMYCIN 1,000 MG/200 ML PIGGYBACK 200 MG IV (10:16)
[2024-05-16] MEDS: LACTATED RINGERS 1,000 ML 84 ML IV ×2 (10:17→15:01)
--- NOTE | 2024-05-16 12:13 | PM.PREOP ---
Pre-operative Note Interval Note History & Physical reviewed/Exam performed by Physician: Yes Changes to H&P: No
--- NOTE | 2024-05-16 12:14 | PM.OP.1 ---
Operative Date/Time/Diagnoses Date of procedure: 05/16/24 Time of procedure: 12:30 Pre-op diagnosis: Right knee OA Post-op diagnosis: same Procedure & Clinicians Procedure: Right total knee arthroplasty Same procedure as scheduled: Yes Indications: The patient has had progressively worsening right knee pain with radiographic changes consistent with arthritis. Non-operative management has failed and the patient has requested total knee replacement. The risks, benefits and alternatives to surgery were discussed with the patient prior to proceeding. Risks discussed included, but were not limited to, failure to relieve pain, stiffness, infection, nerve damage, deep venous thrombosis, pulmonary embolism, stroke, coma, heart attack, permanent paralysis and , as well as the potential need for eventual revision of the prosthetic. Surgeon: Pamela Ruiz Fiberglass Machine Operator: Reece Traore Anesthesia Type: General and Peripheral nerve block Operative Notes Findings: Severe right knee OA, adequate bone, adequate stability Closure Type: primary Specimen(s): none sent Prosthetic devices, grafts, tissues, transplants, or devices: Ruiz and nephew rachel BCS 2 size femur 5, patella 32 x 7.5, tibia 4, poly 9 Estimated Blood Loss (mL): 250 Blood products transfused: none Tourniquet time (min): 92 Procedure in detail: The patient was seen in the pre-operative area, where the patient identified the right knee as the operative site and this was marked with my initials. The patient received pre-operative antibiotics, and was taken to the operating room and placed on the operative table in the supine position. After satisfactory anesthesia, a multimedia educational specialist out was performed. The right leg was encircled with a tourniquet about the proximal thigh, and the leg was prepared from the toes to the tourniquet with ChloroPrep in the usual fashion and draped through sterile drapes. The leg was elevated and exsanguinated with Eschmark bandage and the tourniquet inflated to [250] mmHg pressure. A PA was used during the procedure was essential for intraoperative retraction and safe implantation of the components. The knee was approached through an approximately 18 cm incision centered over the patella and carried into the knee through a medial parapatellar arthrotomy. Portion of the medial and lateral meniscus was resected. Soft tissue was carefully mobilized around the patella the patella was measured with a caliper. Bone was resected from the patella and the patellar height was reconstituted with up an appropriate sized patellar component. A cover was then placed on the patella. A small amount of additional medial and lateral meniscus was resected. Sanju pins were placed in the femur for navigation. The adjustable guide was placed tibia. The knee was meticulously navigated. A plan was taken and optimize. The Cori robotic bur was used to resect the distal femur cut. It looked like an appropriate distal femoral cut and the cut was made without difficulty. The rotation was assessed and the appropriate size femoral guide was placed on the distal femur and finishing cuts were made. There was no evidence of notching. The anterior, posterior and chamfer cuts were then made. The posterior osteophytes and soft tissues were then removed. The posterior capsule was injected with part of a mixture of 60 ml 0.25% Marcaine mixed with 20 ml Exparel for post operative pain control. The remainder of this mixture was injected into the capsule and subcutaneous tissues during cement curing. A proximal tibial cut was made after carefully navigated the tibial guide. Cut was made without difficulty. The rotation was assessed. The patient was placed in extension residual medial and lateral meniscus as well as any residual bone was carefully resected. [No] additional tibia was resected. Hemostasis was achieved especially posteriorly. Additional local was injected into the posterior capsule. The extension gap was assessed. The femoral component was trial was placed and the notch was finished. Trial tibial and femoral components were then placed and the knee placed through a range of motion. Range of motion was [0-130], with good stability throughout the range. The trials were then removed, and the tibia was finished. The bone was prepared with pulsatile lavage, and dried with a sponge. Cement was applied and the final prosthetics placed. Excess cement was removed during and after cement curing. A brief Betadine soak was performed. After confirming there was no extruded cement posteriorly, the final tibial insert was placed. The knee was copiously irrigated and the tourniquet deflated. Hemostasis was obtained with the Bovie cautery. A drain was placed and brought out superolaterally. The capsule was closed with interrupted # 1 Vicryl. The subcutaneous layer was closed with barbed sutures, and the skin with a running 3-0 V-Lock suture and Surgical glue. An Aquacel Ag dressing was applied. The patient flipped into a tachy arrhythmia. Additional medications were given by anesthesia and additional anesthesiologist and nurses were present to provide support. She converted back to atrial fibrillation prior to transferring her to the ICU. Complications: other (Tachy arrhythmia) Post-operative Condition: stable Disposition: Acute Care Plan for aftercare: The patient will be maintained on a standard total knee replacement protocol with weight bearing as tolerated. The patient will receive Eliquis and sequential compression devices for DVT prophylaxis. The patient will be discharged home when safe for the home environment.
[2024-05-16] MEDS: CEFAZOLIN 2 GM/100 ML PREMIX 100 ML IV ×2 (13:06→20:15)
[2024-05-16] MEDS: TRANEXAMIC ACID 1,000 MG in SODIUM CHLORIDE 0.9% 100 ML 200 MG IV ×2 (13:07→15:04)
--- NOTE | 2024-05-16 13:24 | SUR.OPER ---
Supine on padded OR bed. Pillow under head, arms secured on padded armboards <90 degree abduction. Safety belt across torso. Non-operative leg secured with tape over blanket over lower leg. Operative leg secured in DeMayo/Pollo/Nathe positioner. Foam padded brace at thigh of operative leg.
[2024-05-16] MEDS: BUPIVACAINE 0.25% (PF) 60 ML, EPINEPHrine 0.3 MG INJ (13:34)
[2024-05-16] MEDS: BUPIVACAINE LIPOSOME 266 MG/20 ML VIAL INJ (13:35)
--- NOTE | 2024-05-16 15:39 | EKG_ITS ---
[address] [place] [address] Test Date: 2024-05-16 Pat Name: Rosio Evangelista Department: Room: 217 Gender: Female [employer]: : 1955 Requested By: Order Number: [id number] Reading MD: Vinny Mariscal Measurements Intervals [place] Rate: 85 P: [place]: QRS: 114 QRSD: 88 T: 28 QT: 390 QTc: 464 Interpretive Statements Atrial fibrillation Left posterior fascicular block Electronically Signed On 05-20-2024 15:24:28 PDT by Vinny Mariscal
[2024-05-16] MEDS: OXYCODONE IR 10 MG TABLET PO ×2 (18:11→21:48)
[2024-05-16] MEDS: ACETAMINOPHEN 325 MG TABLET 650 MG PO (18:12)
--- NOTE | 2024-05-16 18:30 | PC.NURSE ---
Pt to room 226 via bed from PACU-SVT vs Tachycardia. Hospitalist consulted. Pt oriented to room, call light, bed controls, and tv controls. Tele monitoring in place. SCD's on and running. Bed alarm on for safety. IV infusing as ordered. Reminded Pt not to get up without assistance and to use call light for any needs.
[2024-05-16 18:34] LABS: MRSA (Nasal) PCR NOT DETECTED (Not Detect)
--- NOTE | 2024-05-16 19:31 | PM.CN ---
History of Present Illness Consult details Date Patient Seen: 05/16/24 Time Patient Seen: 17:40 Chief complaint: OPB Reason for consult: Tachyarrhythmia Requesting provider: Pamela Ruiz Narrative: 68-year-old woman followed by Dr. Minerva Silver of [facility] Cardiology underwent right total knee replacement today without surgical complication and till she experienced a wide complex tachycardia at 150 beats per minute. This was felt to be ventricular tachycardia. She has a history of atrial fibrillation but states this has been well controlled without complications. She was administered IV amiodarone 300 mg and IV metoprolol with subsequent resolution of the wide complex rhythm and return to atrial fibrillation in the 90s to 100 range. Echocardiography performed 04/25/2024 showed normal left ventricular thickness, size, wall motion and systolic function with ejection fraction 55-60%, normal right ventricular size and function and no significant abnormalities. According to the patient she had normal cardiac stress testing as well preoperatively. She is asymptomatic without chest pain or breathing problems. she is seen in the intensive care unit noting only mild postoperative knee pain. she has a history of prediabetes and lost 40 lb of weight before surgery taking was emphatic. Meds Home Medications and Allergies Home Medications Medication Instructions Recorded Confirmed Type diltiazem HCl 180 mg capsule,24 180 mg PO QAM 06/01/21 05/16/24 History hr,extended release losartan 50 mg tablet 25 mg PO BEDTIME 06/01/21 05/16/24 History metformin 500 mg tablet 500 mg PO QAM 06/01/21 05/16/24 History metoprolol succinate 50 mg 50 mg PO BEDTIME 06/01/21 05/16/24 History tablet,extended release 24 hr paroxetine HCl 40 mg tablet 20 mg PO DAILY 06/01/21 05/16/24 History rosuvastatin 40 mg tablet 40 mg PO BEDTIME 06/01/21 05/16/24 History acetaminophen 500 mg capsule 1,000 mg PO BEDTIME PRN Pain 07/13/23 05/16/24 History (Scale Score 4-6) apixaban 5 mg tablet (Eliquis) 5 mg PO BID 07/13/23 05/16/24 History levothyroxine 150 mcg tablet 150 mcg PO DAILY 07/13/23 05/16/24 History semaglutide 0.25 mg or 0.5 mg (2 0.25 mg SUBCUT QWEEK 07/13/23 05/16/24 History mg/3 mL) subcutaneous pen injector (Ozempic) Allergies Allergy/AdvReac Type Severity Reaction Status Date / Time lisinopril [From Zestril] AdvReac Intermediate Gastrointestinal Verified 05/16/24 10:14 Upset Review of Systems Review of Systems ROS: Yes All systems reviewed with the patient and are negative except as otherwise documented Exam Vital Signs (past 8 hours): - 05/16/24 16:02 05/16/24 16:07 05/16/24 16:12 Temperature 97.8 F 97.7 F 97.7 F Pulse Rate 91 H 92 H 90 Respiratory Rate 12 12 12 Blood Pressure 144/88 H 156/99 H 150/90 H Pulse Oximetry 98 98 98 Oxygen Delivery Method Simple Mask Simple Mask Simple Mask Oxygen Flow Rate 8 8 10 05/16/24 16:25 05/16/24 16:35 05/16/24 16:45 Temperature 97.6 F 97.5 F L 97.6 F Pulse Rate 97 H 96 H 98 H Respiratory Rate 12 12 12 Blood Pressure 149/84 H 141/80 H 135/88 Pulse Oximetry 98 98 98 Oxygen Delivery Method Simple Mask Simple Mask Simple Mask Oxygen Flow Rate 8 8 8 05/16/24 17:05 05/16/24 17:06 05/16/24 18:35 Temperature 98 F 98 F Pulse Rate 104 H 104 H 109 H Respiratory Rate 16 16 16 Blood Pressure 126/77 126/67 135/95 H Pulse Oximetry 98 98 94 Oxygen Delivery Method Oxygen Flow Rate 8 8 8 Oxygen Delivery Method Simple Mask Oxygen Flow Rate 8 Narrative Exam Narrative: GENERAL: This is a well-nourished, well-developed patient, in no apparent distress. HEAD: Atraumatic. Normocephalic. No temporal or scalp tenderness. EYES: Pupils equal round and reactive. Extraocular motions intact. No scleral icterus. No injection or drainage. ENT: Mucous membranes pink and moist. NECK: Trachea midline. No JVD, bruits or lymphadenopathy. Supple, nontender, no meningeal signs. CARDIOVASCULAR: Regular rate and rhythm without murmurs, gallops, or rubs. RESPIRATORY: Clear to auscultation. GASTROINTESTINAL: Abdomen soft, non-tender, nondistended. EXTREMITIES: No clubbing, cyanosis, or edema. left knee bandage clean, dry and intact. BACK: Nontender without deformity or crepitance. No flank tenderness. NEUROLOGIC: Alert, oriented, speech fluent, full upper and lower motor strength, no focal deficits evident. DERMATOLOGIC: No rashes or skin lesions. Objective ECG Impression: Atrial fibrillation at 85 beats per minute, left posterior Imaging Right knee x-ray:: Radiologist's impression: Expected post-operative appearance of a knee arthroplasty. Labs Labs: Laboratory Results - last 24 hr 05/16/24 17:03 Nasal Screen MRSA (PCR) Not detected [facility] Medical History BMI 40.0-44.9, adult (05/06/24) CAD (coronary artery disease) History of COVID-19 (2021) Difficult intravenous access Anesthesia PTSD (post-traumatic stress disorder) Depression Anxiety Osteoarthritis Breast cancer, right (~2009) Diabetes (~2017) Leon's disease Hypothyroid History of press tender long goods anticoagulant use HLD (hyperlipidemia) HTN (hypertension) NURA (obstructive sleep apnea) Cataract, left eye Seizures TMJ (dislocation of temporomandibular joint) Afib (08/2017) Surgical History H/O right mastectomy (2010) Hx of bilateral cataract extraction (2022) History of total left knee replacement (06/19/21) History of lumpectomy of right breast Hx of tonsillectomy Hx of laparoscopy History of hysterectomy History of cholecystectomy History of cardiac cath (~04/2021) Social History household members: family Tobacco & Substance Use Smoking Status: Former smoker alcohol intake: current Assessment & Plan Assessment & Plan narrative: 1. Perioperative ventricular tachycardia. Rhythm strips are reviewed and demonstrate a wide complex regular tachycardia at 158 beats per minute, resolving following amiodarone infusion. This was not atrial fibrillation with aberrancy. She is completely asymptomatic. Check electrolytes, chemistries, blood counts, thyroid function, serial cardiac enzymes and otherwise monitor continuously on telemetry in the postoperative ICU setting. Further antiarrhythmics will be deferred at this point pending clinical course. 2. Chronic atrial fibrillation. Appears clinically stable. Continue routine diltiazem and metoprolol. 3. Chronic anticoagulation. Continue routine apixaban. 4. Hypertension. Continue routine medication. Appears adequately controlled. 5. Hyperlipidemia. Continue rosuvastatin. 6. Impaired fasting glucose. 7. Depression. Continue paroxetine. 8. Hypothyroidism. Continue routine medication. Check TSH. 9. DVT prophylaxis. Addressed on Eliquis. 10. Code status: Full code. I wish to thank Dr. Ruiz for consulting the hospitalist service on this delightful patient. We will follow with you during her hospitalization. PROFEE Charge Codes Inpatient or Observation consultation: [id number]
[2024-05-16 19:55] LABS: Add Manual Diff / Slide Review NO; Basophils Absolute Auto 0 /uL (0-100); Basophils Percent Auto 0.2 % (0-2); Eosinophils Absolute Auto 0 /uL (0-450); Hematocrit 42.7 % (36-46); Hemoglobin 13.9 g/dL (12.0-16.0); Lymphocytes Absolute Auto 800 /uL (1100-4500); Lymphocytes Percent Auto 5.4 % (25-40); Mean Corpuscular HGB Conc 32.6 % (30-36); Mean Corpuscular Hemoglobin 28.9 PG (26-34); Mean Corpuscular Volume 88.8 fL (80-100); Monocytes Absolute Auto 300 /uL (0-900); Monocytes Percent Auto 1.7 % (3-14); Neutrophils Absolute Auto 13800 /uL (1500-7000); Neutrophils Percent Auto 92.7 % (50-75); Platelet Count 259 X10^3/uL (150-400); Red Blood Cell Count 4.81 X10^6/uL (4.0-5.2); Red Cell Distribution Width 16.6 % (11.6-14.8); White Blood Cell Count 14.9 X10^3/uL (4.5-11.0)
[2024-05-16 20:13] LABS: Magnesium 2.1 mg/dL (1.6-2.3)
[2024-05-16] MEDS: LACTATED RINGERS 1,000 ML 100 ML IV (20:13)
[2024-05-16] MEDS: LOSARTAN 50 MG TABLET 25 MG PO (20:14)
[2024-05-16] MEDS: ATORVASTATIN 20 MG TABLET 80 MG PO (20:14)
[2024-05-16] MEDS: DOCUSATE 100 MG CAPSULE PO (20:14)
[2024-05-16] MEDS: METOPROLOL ER 50 MG TABLET PO (20:15)
[2024-05-16 20:16] LABS: Alanine Aminotransferase 41 IU/L (<35); Albumin 3.7 g/dL (3.5-5.0); Albumin Globulin Ratio 1.3 (1.0-2.8); Alkaline Phosphatase 83 U/L (38-126); Aspartate Aminotransferase 48 IU/L (14-36); BUN Creatinine Ratio 16.3 (6-22); Bilirubin Total 0.7 mg/dL (0.2-1.3); Blood Urea Nitrogen 13 mg/dL (7-17); Calcium 8.4 mg/dL (8.4-10.2); Carbon Dioxide 21 mmol/L (22-32); Chloride 106 mmol/L (98-107); Estimated Glomerular Filt Rate > 60 mL/min (>60); Globulin 2.9 g/dL (1.7-4.1); Glucose 197 mg/dL (80-110); HEMOLYSIS 33 (0-50); Sodium 135 mmol/L (137-145); Total Protein 6.6 g/dL (6.3-8.2)
[2024-05-16 20:28] LABS: Troponin I < 0.012 ng/mL (0.01-0.034)
[2024-05-16 20:51] LABS: TSH w/ Reflex to FT4 0.53 uIU/mL (0.47-4.68)
[2024-05-17] VITALS (24 sets, daily range): BP systolic 97–126; BP diastolic 49–66; PULSE 92–154; RESP 16–116; TEMP 35.7–37.4; O2SAT 89–97
[2024-05-17 04:04] LABS: Add Manual Diff / Slide Review NO; Basophils Absolute Auto 100 /uL (0-100); Basophils Percent Auto 0.3 % (0-2); Eosinophils Absolute Auto 0 /uL (0-450); Hematocrit 40.8 % (36-46); Hemoglobin 13.4 g/dL (12.0-16.0); Lymphocytes Absolute Auto 1100 /uL (1100-4500); Lymphocytes Percent Auto 7.5 % (25-40); Mean Corpuscular HGB Conc 32.9 % (30-36); Mean Corpuscular Hemoglobin 29.1 PG (26-34); Mean Corpuscular Volume 88.3 fL (80-100); Monocytes Absolute Auto 800 /uL (0-900); Monocytes Percent Auto 5.6 % (3-14); Neutrophils Absolute Auto 13100 /uL (1500-7000); Neutrophils Percent Auto 86.6 % (50-75); Platelet Count 284 X10^3/uL (150-400); Red Blood Cell Count 4.62 X10^6/uL (4.0-5.2); White Blood Cell Count 15.1 X10^3/uL (4.5-11.0)
[2024-05-17 04:23] LABS: BUN Creatinine Ratio 17.4 (6-22); Blood Urea Nitrogen 12 mg/dL (7-17); Calcium 8.7 mg/dL (8.4-10.2); Carbon Dioxide 26 mmol/L (22-32); Chloride 107 mmol/L (98-107); Estimated Glomerular Filt Rate > 60 mL/min (>60); Glucose 140 mg/dL (80-110); HEMOLYSIS < 15 (0-50); Potassium 4.8 mmol/L (3.4-5.1); Sodium 138 mmol/L (137-145)
[2024-05-17 04:33] LABS: Troponin I < 0.012 ng/mL (0.01-0.034)
[2024-05-17] MEDS: CEFAZOLIN 2 GM/100 ML PREMIX 100 ML IV (05:57)
[2024-05-17] MEDS: OXYCODONE IR 10 MG TABLET PO (05:57)
[2024-05-17] MEDS: LEVOTHYROXINE 75 MCG TABLET 150 MCG PO (05:59)
--- NOTE | 2024-05-17 07:53 | P.PN_ITS ---
Subjective Subjective Date Patient Seen: 05/17/24 Time Patient Seen: 08:20 Interval history: 68-year-old woman followed by Dr. Minerva Silver of [facility] Cardiology underwent right total knee replacement today without surgical complication and till she experienced a wide complex tachycardia at 150 beats per minute. This was felt to be ventricular tachycardia. She has a history of atrial fibrillation but states this has been well controlled without complications. She was administered IV amiodarone 300 mg and IV metoprolol with subsequent resolution of the wide complex rhythm and return to atrial fibrillation in the 90s to 100 range. Echocardiography performed 04/25/2024 showed normal left ventricular thickness, size, wall motion and systolic function with ejection fraction 55- 60%, normal right ventricular size and function and no significant abnormalities. According to the patient she had normal cardiac stress testing as well preoperatively. She is asymptomatic without chest pain or breathing problems. she is seen in the intensive care unit noting only mild postoperative knee pain. she has a history of prediabetes and lost 40 lb of weight before surgery taking was emphatic. Interval history: Patient had no more runs of ventricular tachycardia overnight. She remains in atrial fibrillation in the 100-130 range. This improved to the 80s to 90s with addition of metoprolol 25 mg b.i.d.. Exam Vital Signs (past 8 hours): - 05/17/24 03:00 05/17/24 07:39 Temperature 96.6 F L 96.2 F L Pulse Rate 129 H 118 H Respiratory Rate 20 16 Blood Pressure 97/54 L 106/58 L Pulse Oximetry 96 96 Oxygen Flow Rate 2 2 Oxygen Delivery Method Nasal Cannula Oxygen Flow Rate 2 Narrative Exam Narrative: GENERAL: This is a well-nourished, well-developed patient, in no apparent distress. EYES: Pupils equal round and reactive. Extraocular motions intact. No scleral icterus. No injection or drainage. ENT: Mucous membranes pink and moist. NECK: Trachea midline. No JVD, bruits or lymphadenopathy. Supple, nontender, no meningeal signs. CARDIOVASCULAR: Regular rate and rhythm without murmurs, gallops, or rubs. RESPIRATORY: Clear to auscultation. GASTROINTESTINAL: Abdomen soft, non-tender, nondistended. EXTREMITIES: No clubbing, cyanosis, or edema. left knee bandage clean, dry and intact. NEUROLOGIC: Alert, oriented, speech fluent, full upper and lower motor strength, no focal deficits evident. DERMATOLOGIC: No rashes or skin lesions. Objective Labs 05/17/24 03:48 05/17/24 03:48 Labs: Laboratory Results - last 24 hr 05/16/24 05/16/24 05/17/24 17:03 19:47 03:48 WBC 14.9 H 15.1 H RBC 4.81 4.62 Hgb 13.9 13.4 Hct 42.7 40.8 MCV 88.8 88.3 MCH 28.9 29.1 MCHC 32.6 32.9 RDW 16.6 H 16.0 H Plt Count 259 284 Neut % (Auto) 92.7 H 86.6 H Lymph % (Auto) 5.4 L 7.5 L [place] % (Auto) 1.7 L 5.6 Eos % (Auto) 0.0 L 0.0 L Baso % (Auto) 0.2 0.3 Neut # (Auto) 34666 H 27424 H Lymph # (Auto) 800 L 1100 [place] # (Auto) 300 800 Eos # (Auto) 0 0 Baso # (Auto) 0 100 Sodium 135 L 138 Potassium 5.0 4.8 Chloride 106 107 Carbon Dioxide 21 L 26 BUN 13 12 Creatinine 0.80 0.69 Estimated GFR > 60 > 60 BUN/Creatinine Ratio 16.3 17.4 Glucose 197 H 140 H Calcium 8.4 8.7 Magnesium 2.1 Total Bilirubin 0.7 AST 48 H ALT 41 H Alkaline Phosphatase 83 Troponin I < 0.012 < 0.012 Total Protein 6.6 Albumin 3.7 Globulin 2.9 Albumin/Globulin Ratio 1.3 TSH 0.53 Nasal Screen MRSA (PCR) Not detected [facility] Medical History BMI 40.0-44.9, adult (05/06/24) CAD (coronary artery disease) History of COVID-19 (2021) Difficult intravenous access Anesthesia PTSD (post-traumatic stress disorder) Depression Anxiety Osteoarthritis Breast cancer, right (~2009) Diabetes (~2018) Leon's disease Hypothyroid History of senior care anticoagulant use HLD (hyperlipidemia) HTN (hypertension) NURA (obstructive sleep apnea) Cataract, left eye Seizures TMJ (dislocation of temporomandibular joint) Afib (08/2017) Surgical History H/O right mastectomy (2010) Hx of bilateral cataract extraction (2022) History of total left knee replacement (06/19/21) History of lumpectomy of right breast Hx of tonsillectomy Hx of laparoscopy History of hysterectomy History of cholecystectomy History of cardiac cath (~04/2021) Social History household members: family Smoking Status: Former smoker alcohol intake: current Assessment & Plan Assessment & Plan narrative: 1. Perioperative ventricular tachycardia, resolved without recurrence. Rhythm strips are reviewed and demonstrate a wide complex regular tachycardia at 158 beats per minute, resolved following amiodarone infusion x1 dose. This was not atrial fibrillation with aberrancy. She remains completely asymptomatic. Normal electrolytes, ruled out for myocardial infarction. Continue to monitor. Recheck CBC tomorrow noting mild leukocytosis. 2. Chronic atrial fibrillation. Appears clinically stable. Continue routine diltiazem and increase metoprolol to 25 mg every 6 hours. May resume home dose at discharge likely. 3. Chronic anticoagulation. Continue routine apixaban. 4. Hypertension. Continue routine medication. Appears adequately controlled. 5. Hyperlipidemia. Continue rosuvastatin. 6. Impaired fasting glucose. 7. Depression. Continue paroxetine. 8. Hypothyroidism. Continue routine medication. TSH normal. 9. DVT prophylaxis. Addressed on Eliquis. 10. Code status: Full code. I wish to thank Dr. Ruiz for consulting the hospitalist service on this delightful patient. We will follow with you during her hospitalization. Time-Based Coding :: [TOTAL MINUTES] spent with patient and on the chart (including review of chart, obtaining history, exam, reviewing outside data, placing orders, documenting exam and treatment plan, and counseling patient) on [DATE]. Quality VTE Deep Vein Thrombosis/Pulmonary Embolism Present on Admission: No I[facility] PROFEE Charge codes Subsequent inpatient/observation care: [id number]
--- NOTE | 2024-05-17 08:30 | PM.PNPO.1 ---
Subjective Subjective Interval history: Patient states she is feeling well today. The block on her right knee is still intact. Denies any new numbness or tingling into her right foot. Patient has sustained wide complex tachycardia at 150 beats per minute during surgery. This was felt to be ventricular tachycardia. She has a history of atrial fibrillation but states this has been well controlled without complications. She was administered IV amiodarone 300 mg and IV metoprolol with subsequent resolution of the wide complex rhythm and return to atrial fibrillation in the 90s to 100 range. She is currently asymptomatic with regards to chest pain or breathing problems. Exam Vital Signs (past 8 hours): - 05/17/24 03:00 05/17/24 07:39 Temperature 96.6 F L 96.2 F L Pulse Rate 129 H 118 H Respiratory Rate 20 16 Blood Pressure 97/54 L 106/58 L Pulse Oximetry 96 96 Oxygen Flow Rate 2 2 Oxygen Delivery Method Nasal Cannula Oxygen Flow Rate 2 Narrative Exam Narrative: Patient is found lying comfortably in bed. Dressing is clean dry and intact. SCDs on and functioning. 5/5 strength in DF, PF, EHL bilaterally. Sensation to light touch intact throughout BLE. Calves soft, compressible, nontender. Resp Effort & Inspection: normal respiratory effort and able to speak in complete sentences Objective Labs 05/17/24 03:48 05/17/24 03:48 Labs: Laboratory Results - last 24 hr 05/16/24 05/16/24 05/17/24 17:03 19:47 03:48 WBC 14.9 H 15.1 H RBC 4.81 4.62 Hgb 13.9 13.4 Hct 42.7 40.8 MCV 88.8 88.3 MCH 28.9 29.1 MCHC 32.6 32.9 RDW 16.6 H 16.0 H Plt Count 259 284 Neut % (Auto) 92.7 H 86.6 H Lymph % (Auto) 5.4 L 7.5 L [place] % (Auto) 1.7 L 5.6 Eos % (Auto) 0.0 L 0.0 L Baso % (Auto) 0.2 0.3 Neut # (Auto) 10784 H 12515 H Lymph # (Auto) 800 L 1100 [place] # (Auto) 300 800 Eos # (Auto) 0 0 Baso # (Auto) 0 100 Sodium 135 L 138 Potassium 5.0 4.8 Chloride 106 107 Carbon Dioxide 21 L 26 BUN 13 12 Creatinine 0.80 0.69 Estimated GFR > 60 > 60 BUN/Creatinine Ratio 16.3 17.4 Glucose 197 H 140 H Calcium 8.4 8.7 Magnesium 2.1 Total Bilirubin 0.7 AST 48 H ALT 41 H Alkaline Phosphatase 83 Troponin I < 0.012 < 0.012 Total Protein 6.6 Albumin 3.7 Globulin 2.9 Albumin/Globulin Ratio 1.3 TSH 0.53 Nasal Screen MRSA (PCR) Not detected [facility] Medical History BMI 40.0-44.9, adult (05/06/24) CAD (coronary artery disease) History of COVID-19 (2021) Difficult intravenous access Anesthesia PTSD (post-traumatic stress disorder) Depression Anxiety Osteoarthritis Breast cancer, right (~2009) Diabetes (~2017) Leon's disease Hypothyroid 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 HLD (hyperlipidemia) HTN (hypertension) NURA (obstructive sleep apnea) Cataract, left eye Seizures TMJ (dislocation of temporomandibular joint) Afib (08/2017) Surgical History H/O right mastectomy (2010) Hx of bilateral cataract extraction (2022) History of total left knee replacement (06/19/21) History of lumpectomy of right breast Hx of tonsillectomy Hx of laparoscopy History of hysterectomy History of cholecystectomy History of cardiac cath (~04/2021) Social History household members: family Smoking Status: Former smoker alcohol intake: current Assessment & Plan Post-op Postoperative Procedures: Procedures Operation Date: 05/16/24 12:00 Actual Procedure Side Surgeon p Total Knee Arthroplasty - Robot Right Pamela Ruiz MD Postoperative day: 1 Postoperative plan: routine post-op care Postoperative plan narrative: Spoke with Medicine this morning. Plan is to transfer out of ICU to acute care bed today. Still recommend 24 hour observation as the patient requires nasal cannula on 2 L of oxygen and telemetry as the patient still is tachycardic. Ambulate with physical therapy today. Multimodal pain control. SCDs on for DVT prevention when resting in bed. Eliquis 5mg bid for DVT prevention secondary to atrial fibrillation. Re-evaluate tomorrow to discharge home once cleared by Medicine. Time Spent With Patient Time with patient: 15-24 minutes Quality VTE Deep Vein Thrombosis/Pulmonary Embolism Present on Admission: No
[2024-05-17] MEDS: FUROSEMIDE 40 MG/4 ML VIAL IV (09:02)
[2024-05-17] MEDS: ACETAMINOPHEN 325 MG TABLET 650 MG PO ×3 (09:02→22:30)
[2024-05-17] MEDS: PARoxetine 20 MG TABLET PO (09:03)
[2024-05-17] MEDS: dilTIAZem CD 180 MG CAP PO (09:03)
[2024-05-17] MEDS: DOCUSATE 100 MG CAPSULE PO ×2 (09:03→20:56)
[2024-05-17] MEDS: METFORMIN HCL 500 MG TABLET PO (09:03)
--- NOTE | 2024-05-17 09:20 | PT.IPTN ---
Current Diagnoses Unilateral primary osteoarthritis, right knee (05/16/24) Surgery Performed Operation Date: 05/16/24 12:00 Actual Procedures p Total Knee Arthroplasty - Robot(Right) - Pamela Ruiz MD Physical Therapy Treatment Note M3 PT-IP Subjective Start: 05/17/24 13:13 Freq: NEEDED Status: Active Protocol: Document 05/17/24 09:20 AB (Rec: 05/17/24 13:19 AB [id number]) Subjective Physical Therapy Visit Type Type Administrative Note Notes talked with nurse and stated that pt's NC is still high but was just given lasix and for PT to check back later to see if HR is better. checked on pt and obtained PLOF and home set up and post-op folder provided. checked back on pt after ~ 1 hour and nurse stated that HR is still high. Resting HR: 110 -140s. Hold PT eval this morning will f/u.
--- NOTE | 2024-05-17 11:08 | OT.IPNOTE ---
Pt having high HR, hold OT eval.
[2024-05-17] MEDS: METOPROLOL IR 25 MG TABLET PO ×3 (11:45→23:26)
--- NOTE | 2024-05-17 11:46 | EKG_ITS ---
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
--- NOTE | 2024-05-17 13:35 | PT.IIE ---
Current Diagnoses Unilateral primary osteoarthritis, right knee (05/16/24) Surgery Performed Operation Date: 05/16/24 12:00 Actual Procedures p Total Knee Arthroplasty - Robot(Right) - Pamela Ruiz MD Surgical History (Last Reviewed 05/16/24 @ 19:37 by Chris Byers MD) H/O right mastectomy (2010) History of cardiac cath (~04/2021) History of cholecystectomy History of hysterectomy History of lumpectomy of right breast History of total left knee replacement (06/19/21) Hx of bilateral cataract extraction (2022) Hx of laparoscopy Hx of tonsillectomy Medical History (Last Reviewed 05/16/24 @ 19:37 by Chris Byers MD) Afib (08/2017) Anesthesia Anxiety BMI 40.0-44.9, adult (05/06/24) Breast cancer, right (~2009) CAD (coronary artery disease) Cataract, left eye Depression Diabetes (~2017) Difficult intravenous access Leon's disease History of COVID-19 (2021) History of [facility] anticoagulant use HLD (hyperlipidemia) HTN (hypertension) Hypothyroid NURA (obstructive sleep apnea) Osteoarthritis PTSD (post-traumatic stress disorder) Seizures TMJ (dislocation of temporomandibular joint) Physical Therapy Inpatient Evaluation/Re-Eval M1 PT/OT-IP Prior Functional Status Start: 05/17/24 13:13 Freq: NEEDED Status: Active Protocol: Document 05/17/24 15:47 [facility] (Rec: 05/17/24 15:56 [facility] [id number]) Medical Review Prior Functional Status Medical History Reviewed Yes Communication able to make needs known Mobility and Gait pt stated that she was independent with all mobilities and ambulation without AD Activities of Daily Living and IADL's Pt states able to do all ADL and IADL needs but had pain. Social History Household Members family Living Arrangements House Number of Floors (Floors) One Floor Number of Stairs To Enter/Railing? 3 steps L rail ascending to enter Home Environment High Toilet,Walk in Shower Home Equipment Front Wheel Walker,Shower Seat with Backrest,Hand Held Shower,Grab Bars In Shower Additional Social History Comment pt plans to sleep on her recliner upon d/c pt lives with her grand daughter and BF. 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 Physical Therapy Visit Comments Patient Comments agreeable to do PT Therapy Pain Assessment Pain When Pain Assessed During Mobility Pain Present Pain Present Pain Reported Location R knee Intensity 9 Scale Used Numeric (0 - 10) Pain Management Techniques Apply Cold,Distraction, Elevation,Modification of Treatment,Re-positioning, Timing of Activity with Medications M4 PT-IP Mobility and Gait Start: 05/17/24 13:13 Freq: NEEDED Status: Active Protocol: Document 05/17/24 13:35 AB (Rec: 05/17/24 17:08 AB [id number]) PT-Bed Mobility Assessment Supine to Sit Supine to Sit Moderate Assistance PT-Transfer Assessment Sit to and From Stand Sit to and from Stand Maximum Assistance,1 Person Assistance,Use of Upper Extremities Equipment Transfer Assistive Device Gait Belt,Front Wheeled Walker Orthotic/Prosthetic Devices or Brace: No Transfers Transfer Destination Chair Transfer Technique Stand Step Pivot Transfer Ability Level of Assist Maximum Assistance Comments Mobility Comments pt supine in bed. NH better this afternoon: restin-93 bpm. reviewed post-op folde with pt and reviewed contents. BP supine: 101/49. pt completed supine to sit max A and cues. c/o increase knee pain with mobility. pt needed increase time to complete task. able to sit on EOB SBA. no c/o dizziness. BP checked : 98/55. NH varies: 86 to 127 with activity. completed sit to stand max A and max cues. attempted to ambulated but only able to walk ~ 2 ft using FWW max A and max cues. c/o increase R knee pain and pt needing to sit back down. pt sat on EOB. BP checked: 101/ 55. positioned chair next to pt. pt completed sit to stand max A and cues and step transfer to chair using FWW max A and max cues. positioned pt on the chair. call light and table placed within reach. Gait Assessment Gait Gait Assistance Required: Maximum Assistance Distance (Feet) 2 Able to Maintain Weight Bearing Status Yes During Gait Assistive Devices Assistive Device Gait Belt,Front Wheeled Walker Orthotic/Prosthetic Devices or Brace: No Gait Deviations General Gait Pattern Decreased Stride Length,Step- to Gait Factors Limiting Gait Function Factors Limiting Gait Function Decreased Activity Tolerance, Decreased Sensation,Decreased Strength,Limited Range of Motion,Pain,Poor Balance,Poor Safety Awareness PT-Balance Assessment Sitting Balance and Reactions Static Sitting Balance Ability Good Dynamic Sitting Balance Ability Good Standing Balance and Reactions Static Standing Balance Ability Poor Dynamic Standing Balance Ability Poor Device Used FWW M5 PT-IP Objective Assessments Start: 05/17/24 13:13 Freq: NEEDED Status: Active Protocol: Document 05/17/24 13:35 AB (Rec: 05/17/24 17:08 [id number]) Orientation Orientation/Cognition Level of Alertness Alert Orientation Name,Place,Situation Language Function Ability No Deficits Noted Safety Awareness Decreased Safety Awareness Memory Description No Deficits Noted Gross Range of Motion Lower Extremity ROM Assessment Right Impaired Impairments R knee flexion: ~ 50 deg R knee extension: ~ 20 deg less to 0 Strength Lower Extremity Strength Assessment Right Impaired Hip 3+/5 Knee 3+/5 Coordination Assessment Gross Coordination Gross Coordination WNL Sensation Assessment Sensation Sensation Description Numbness Comments Sensation Comments chronic numbness on all toes Muscle Tone Muscle Tone WNL Yes M6 PT-IP Treatment Start: 05/17/24 13:13 Freq: NEEDED Status: Active Protocol: Document 05/17/24 13:35 AB (Rec: 05/17/24 17:08 [id number]) Physical Therapy Treatment Exercises Exercises Heel Slides Education Education Provided Precautions,Weight Bearing Status,Post-Op Packet,Safety M7 PT-IP Assessment and Plan Start: 05/17/24 13:13 Freq: NEEDED Status: Active Protocol: Document 05/17/24 13:35 AB (Rec: 05/17/24 17:08 [id number]) PT Summary Assessment and Plan Potential Rehabilitation Potential Fair Status of Condition at Evaluation Evolving Summary Impairments Pain,ROM,Strength,Balance, Coordination,Sensation,Tone, Cognition,Bed Mobility, Transfers,Gait,Activity Tolerance Assessment Summary pt is a 68 y/o F s/p R TKA POD 1. pt had tachycardia during sx with h/o A-fib affecting current functional mobility and activity tolerance. pt requiring max A with all mobilities using FWW and unable to ambulate much due to c/o increase R knee pain. pt will require SNF rehab to improve overall mobility and strength. Goals Bed Mobility Goal Standby Assistance Transfer Goal Standby Assistance,Front Wheeled Walker Gait Goal Standby Assistance,Front Wheel Walker Gait Distance 50 Other Goals improve bed mobility, transfers and ambulation using FWW ~ 150 ft SBA up/down 3 steps L rail ascending SBA Days to Meet Goals 10 Frequency of Treatment Other frequency 1-2x/day Treatment Plan Physical Therapy Treatment Plan Bed Mobility Training,Transfer Training,Gait Training, Therapeutic Exercise,Balance Retraining,Post Op Education, Discharge Planning,Hot or Cold Pack,Neuromuscular Re-ed, Coordination Retraining,Manual Therapy Weight Bearing Status Weight Bearing Status Weight Bear as Tolerated Allowed Weight Bearing Amount (enter % RLE WBAT or #) (%) Recommendations To Nursing Amount of Assist Needed 2 Person Assist Discharge Recommendations PT Discharge Recommendations SNF Rehab Transportation Needs at Discharge Wheelchair/Cabulance
--- NOTE | 2024-05-17 13:35 | PT.IIE ---
Current Diagnoses Unilateral primary osteoarthritis, right knee (05/16/24) Surgery Performed Operation Date: 05/16/24 12:00 Actual Procedures p Total Knee Arthroplasty - Robot(Right) - Pamela Ruiz MD Surgical History (Last Reviewed 05/16/24 @ 19:37 by Chris Byers MD) H/O right mastectomy (2010) History of cardiac cath (~04/2021) History of cholecystectomy History of hysterectomy History of lumpectomy of right breast History of total left knee replacement (06/19/21) Hx of bilateral cataract extraction (2022) Hx of laparoscopy Hx of tonsillectomy Medical History (Last Reviewed 05/16/24 @ 19:37 by Chris Byers MD) Afib (08/2017) Anesthesia Anxiety BMI 40.0-44.9, adult (05/06/24) Breast cancer, right (~2009) CAD (coronary artery disease) Cataract, left eye Depression Diabetes (~2017) Difficult intravenous access Leon's disease History of COVID-19 (2021) History of group home anticoagulant use HLD (hyperlipidemia) HTN (hypertension) Hypothyroid NURA (obstructive sleep apnea) Osteoarthritis PTSD (post-traumatic stress disorder) Seizures TMJ (dislocation of temporomandibular joint) Physical Therapy Inpatient Evaluation/Re-Eval M1 PT/OT-IP Prior Functional Status Start: 05/17/24 13:13 Freq: NEEDED Status: Active Protocol: Document 05/17/24 15:47 [facility] (Rec: 05/17/24 15:56 [facility] [id number]) Medical Review Prior Functional Status Medical History Reviewed Yes Communication able to make needs known Mobility and Gait pt stated that she was independent with all mobilities and ambulation without AD Activities of Daily Living and IADL's Pt states able to do all ADL and IADL needs but had pain. Social History Household Members family Living Arrangements House Number of Floors (Floors) One Floor Number of Stairs To Enter/Railing? 3 steps L rail ascending to enter Home Environment High Toilet,Walk in Shower Home Equipment Front Wheel Walker,Shower Seat with Backrest,Hand Held Shower,Grab Bars In Shower Additional Social History Comment pt plans to sleep on her recliner upon d/c pt lives with her grand daughter and BF. M2 PT-IP Current Condition Start: 05/17/24 13:13 Freq: NEEDED Status: Active Protocol: Document 05/17/24 13:35 AB (Rec: 05/17/24 17:08 AB [id number]) Physical Therapy Current Condition Current Condition Evaluation Date 05/17/24 Treatment Diagnosis s/p R TKA; difficulty in walking Onset Date 05/16/24 M3 PT-IP Subjective Start: 05/17/24 13:13 Freq: NEEDED Status: Active Protocol: Document 05/17/24 13:35 AB (Rec: 05/17/24 17:08 AB [id number]) Subjective Physical Therapy Visit Type Type Initial Evaluation Visit Start Time 13:35 Visit Stop Time 14:40 Number of LEATHER PIECE INSPECTOR Visits 0 Physical Therapy Visit Comments Patient Comments agreeable to do PT Therapy Pain Assessment Pain When Pain Assessed During Mobility Pain Present Pain Present Pain Reported Location R knee Intensity 9 Scale Used Numeric (0 - 10) Pain Management Techniques Apply Cold,Distraction, Elevation,Modification of Treatment,Re-positioning, Timing of Activity with Medications M4 PT-IP Mobility and Gait Start: 05/17/24 13:13 Freq: NEEDED Status: Active Protocol: Document 05/17/24 13:35 AB (Rec: 05/17/24 17:08 AB [id number]) PT-Bed Mobility Assessment Supine to Sit Supine to Sit Moderate Assistance PT-Transfer Assessment Sit to and From Stand Sit to and from Stand Maximum Assistance,1 Person Assistance,Use of Upper Extremities Equipment Transfer Assistive Device Gait Belt,Front Wheeled Walker Orthotic/Prosthetic Devices or Brace: No Transfers Transfer Destination Chair Transfer Technique Stand Step Pivot Transfer Ability Level of Assist Maximum Assistance Comments Mobility Comments pt supine in bed. NE better this afternoon: restin-93 bpm. reviewed post-op folde with pt and reviewed contents. BP supine: 101/49. pt completed supine to sit max A and cues. c/o increase knee pain with mobility. pt needed increase time to complete task. able to sit on EOB SBA. no c/o dizziness. BP checked : 98/55. NE varies: 86 to 127 with activity. completed sit to stand max A and max cues. attempted to ambulated but only able to walk ~ 2 ft using FWW max A and max cues. c/o increase R knee pain and pt needing to sit back down. pt sat on EOB. BP checked: 101/ 55. positioned chair next to pt. pt completed sit to stand max A and cues and step transfer to chair using FWW max A and max cues. positioned pt on the chair. call light and table placed within reach. Gait Assessment Gait Gait Assistance Required: Maximum Assistance Distance (Feet) 2 Able to Maintain Weight Bearing Status Yes During Gait Assistive Devices Assistive Device Gait Belt,Front Wheeled Walker Orthotic/Prosthetic Devices or Brace: No Gait Deviations General Gait Pattern Decreased Stride Length,Step- to Gait Factors Limiting Gait Function Factors Limiting Gait Function Decreased Activity Tolerance, Decreased Sensation,Decreased Strength,Limited Range of Motion,Pain,Poor Balance,Poor Safety Awareness PT-Balance Assessment Sitting Balance and Reactions Static Sitting Balance Ability Good Dynamic Sitting Balance Ability Good Standing Balance and Reactions Static Standing Balance Ability Poor Dynamic Standing Balance Ability Poor Device Used FWW M5 PT-IP Objective Assessments Start: 05/17/24 13:13 Freq: NEEDED Status: Active Protocol: Document 05/17/24 13:35 AB (Rec: 05/17/24 17:08 [id number]) Orientation Orientation/Cognition Level of Alertness Alert Orientation Name,Place,Situation Language Function Ability No Deficits Noted Safety Awareness Decreased Safety Awareness Memory Description No Deficits Noted Gross Range of Motion Lower Extremity ROM Assessment Right Impaired Impairments R knee flexion: ~ 50 deg R knee extension: ~ 20 deg less to 0 Strength Lower Extremity Strength Assessment Right Impaired Hip 3+/5 Knee 3+/5 Coordination Assessment Gross Coordination Gross Coordination WNL Sensation Assessment Sensation Sensation Description Numbness Comments Sensation Comments chronic numbness on all toes Muscle Tone Muscle Tone WNL Yes M6 PT-IP Treatment Start: 05/17/24 13:13 Freq: NEEDED Status: Active Protocol: Document 05/17/24 13:35 AB (Rec: 05/17/24 17:08 [id number]) Physical Therapy Treatment Exercises Exercises Heel Slides Education Education Provided Precautions,Weight Bearing Status,Post-Op Packet,Safety M7 PT-IP Assessment and Plan Start: 05/17/24 13:13 Freq: NEEDED Status: Active Protocol: Document 05/17/24 13:35 AB (Rec: 05/17/24 17:08 [id number]) PT Summary Assessment and Plan Potential Rehabilitation Potential Fair Status of Condition at Evaluation Evolving Summary Impairments Pain,ROM,Strength,Balance, Coordination,Sensation,Tone, Cognition,Bed Mobility, Transfers,Gait,Activity Tolerance Assessment Summary pt is a 68 y/o F s/p R TKA POD 1. pt had tachycardia during sx with h/o A-fib affecting current functional mobility and activity tolerance. pt requiring max A with all mobilities using FWW and unable to ambulate much due to c/o increase R knee pain. pt will require SNF rehab to improve overall mobility and strength. Goals Bed Mobility Goal Standby Assistance Transfer Goal Standby Assistance,Front Wheeled Walker Gait Goal Standby Assistance,Front Wheel Walker Gait Distance 50 Other Goals improve bed mobility, transfers and ambulation using FWW ~ 150 ft SBA up/down 3 steps L rail ascending SBA Days to Meet Goals 10 Frequency of Treatment Other frequency 1-2x/day Treatment Plan Physical Therapy Treatment Plan Bed Mobility Training,Transfer Training,Gait Training, Therapeutic Exercise,Balance Retraining,Post Op Education, Discharge Planning,Hot or Cold Pack,Neuromuscular Re-ed, Coordination Retraining,Manual Therapy Weight Bearing Status Weight Bearing Status Weight Bear as Tolerated Allowed Weight Bearing Amount (enter % RLE WBAT or #) (%) Recommendations To Nursing Amount of Assist Needed 2 Person Assist Discharge Recommendations PT Discharge Recommendations SNF Rehab Transportation Needs at Discharge Wheelchair/Cabulance
--- NOTE | 2024-05-17 13:47 | PC.NURSE ---
1000--HR 120s-140s; webex status sent to Dr Byers; 1054--HR not sustained, but frequently increasing to 150s; webex message to Dr Byers; new order rec'd for Metoprolol po q6h; 1st dose given at 1145; 1340--HR currently 90s-110
[2024-05-17] MEDS: OXYCODONE IR 5 MG TABLET PO (14:32)
--- NOTE | 2024-05-17 15:56 | OT.IP.EVAL ---
Current Diagnoses Unilateral primary osteoarthritis, right knee (05/16/24) Surgery Performed Operation Date: 05/16/24 12:00 Actual Procedures p Total Knee Arthroplasty - Robot(Right) - Pamela Ruiz MD Past Medical History (Last Reviewed 05/16/24 @ 19:37 by Chris Byers MD) Afib (08/2017) Anesthesia Anxiety BMI 40.0-44.9, adult (05/06/24) Breast cancer, right (~2009) CAD (coronary artery disease) Cataract, left eye Depression Diabetes (~2017) Difficult intravenous access Leon's disease History of COVID-19 (2021) History of residential anticoagulant use HLD (hyperlipidemia) HTN (hypertension) Hypothyroid NURA (obstructive sleep apnea) Osteoarthritis PTSD (post-traumatic stress disorder) Seizures TMJ (dislocation of temporomandibular joint) Surgical History (Last Reviewed 05/16/24 @ 19:37 by Chris Byers MD) H/O right mastectomy (2010) History of cardiac cath (~04/2021) History of cholecystectomy History of hysterectomy History of lumpectomy of right breast History of total left knee replacement (06/19/21) Hx of bilateral cataract extraction (2022) Hx of laparoscopy Hx of tonsillectomy Occupational Therapy Inpatient Evaluation/Re-Eval M1 PT/OT-IP Prior Functional Status Start: 05/17/24 13:13 Freq: NEEDED Status: Active Protocol: Document 05/17/24 15:47 [facility] (Rec: 05/17/24 15:56 [facility] [id number]) Medical Review Prior Functional Status Medical History Reviewed Yes Communication able to make needs known Mobility and Gait pt stated that she was independent with all mobilities and ambulation without AD Activities of Daily Living and IADL's Pt states able to do all ADL and IADL needs but had pain. Social History Household Members family Living Arrangements House Number of Floors (Floors) One Floor Number of Stairs To Enter/Railing? 3 steps L rail ascending to enter Home Environment High Toilet,Walk in Shower Home Equipment Front Wheel Walker,Shower Seat with Backrest,Hand Held Shower,Grab Bars In Shower Additional Social History Comment pt plans to sleep on her recliner upon d/c pt lives with her grand daughter and BF. M2 OT-IP Current Condition Start: 05/17/24 15:47 Freq: Status: Active Protocol: Document 05/17/24 15:47 [facility] (Rec: 05/17/24 15:56 [facility] [id number]) Occupational Therapy Current Condition Current Condition Evaluation Date 05/17/24 Treatment Diagnosis S/P R TKA Diagnosis Onset Date 05/16/24 M3 OT- IP Subjective and Pain Start: 05/17/24 15:47 Freq: Status: Active Protocol: Document 05/17/24 15:47 [facility] (Rec: 05/17/24 15:56 [facility] [id number]) OT- Subjective Occupational Therapy Visit Type Type Initial Evaluation Visit Start Time 15:30 Visit Stop Time 15:45 Occupational Therapy Visit Comments Patient Comments Pt not wanting to get up and too tired and worn out from just completing PT eval. Patient/Caregiver Goals TO go home. OT Pain Assessment Pain When Pain Assessed At Rest Pain Present Pain Present Pain Reported Location R knee Intensity 6 Scale Used Numeric (0 - 10) M4 OT- IP ADL's Start: 05/17/24 15:47 Freq: Status: Active Protocol: Document 05/17/24 15:47 [facility] (Rec: 05/17/24 15:56 [facility] [id number]) OT [id number] Comments OT Self-Feeding Comments Not at meal time. OT ADL-Grooming Comments OT Grooming Comments NOt performed. OT ADL-Oral Care Comments Oral Care Comments Not performed. OT ADL-Dressing General Eval Lower Body Dressing Ability Maximum Assistance Areas Needing Assistance Socks Comments OT Dressing Comments Educated best to dress the RLE first and take out last. Also to be mindful of not twisting her knee during ADL needs. OT ADL-Toileting Comments OT Toileting Comments Suggested pt get a BSC as pt states uses the toilet every 2 hours. OT ADL-Bathing Comments OT Bathing Comments Spoke of covering the dressing from getting wet for showering needs. M5 OT- IP IADL's Start: 05/17/24 15:47 Freq: Status: Active Protocol: Document 05/17/24 15:47 [facility] (Rec: 05/17/24 15:56 [facility] [id number]) OT-Instrumental Activities of Daily Living Home Safety Awareness Awareness of Need for Assistance at Home Good Awareness Ability to Problem Solve Emergency Able to Problem Solve Situations Medication Management Medication Management Caregiver Administers Money Management Money Management Caregiver Provides Assistance Meal Preparation Meal Preparation Caregiver Provides Assist Lime Kiln And Recausticizing Operator Lime Kiln And Recausticizing Operator Caregiver Provides Assist M6 OT- IP Functional Cognition Start: 05/17/24 15:47 Freq: Status: Active Protocol: Document 05/17/24 15:47 [facility] (Rec: 05/17/24 15:56 [facility] [id number]) Cognitive Factors Limiting Selfcare Function Cognitive Ability Level of Alertness Alert Patient Orientation Name,Place,Situation Attention Span Ability Capable of Focused Attention, Capable of Sustained Attention Ability to Follow Commands Able to Follow One Step Commands Cognitive Comments Cognitive Assessment Comments Pt has good understanding for needs at home and able to follow commands. OT- Vision and Hearing OT- Hearing Assessment OT- Hearing Assessment WFL OT- Vision Assessment Visual Acuity WFL Visual Attentiveness WFL Occular Pursuits WFL M7 OT- IP Mobility and Balance Start: 05/17/24 15:47 Freq: Status: Active Protocol: Document 05/17/24 15:47 [facility] (Rec: 05/17/24 15:56 [facility] [id number]) OT-Transfer Assessment Comments Mobility Comments See PT eval for mobility as pt not wanting to get up as just completed PT eval. M8 OT- IP Objective Assessments Start: 05/17/24 15:47 Freq: Status: Active Protocol: Document 05/17/24 15:47 [facility] (Rec: 05/17/24 15:56 [facility] [id number]) OT Gross Range of Motion Upper Extremity Range of Motion Assessment Within Functional Limits OT Strength Upper Extremity Strength Assessment Within Functional Limits M9 OT- IP Assessment and Plan Start: 05/17/24 15:47 Freq: Status: Active Protocol: Document 05/17/24 15:47 [facility] (Rec: 05/17/24 15:56 [facility] [id number]) OT Summary Assessment and Plan Potential Rehabilitation Potential Good Analytic Complexity at Evaluation Moderate Summary OT Impairments Pain,Balance,Functional Mobility,Grooming,Dressing, Toileting,Bathing,Toilet Transfers,Shower Transfers, Activity Tolerance Progress Towards Goals Slow Progress due to Pain,Slow Progress due to Medical Issues Assessment Summary Pt MOD complexity and main barriers are steps, pain, having high HR earlier, and having difficulty to move her RLE at this time. Pt has good support at home to be there to assist her. Pt plans to go home with assist and attend outpt PT when stable. Pt to benefit from getting a BSC. Goals Grooming Goal Independent Dressing Goal Independent Toileting Goal Independent Bathing Goal Standby Assistance Toilet Transfer Goal Independent Shower Transfer Goal Standby Assistance Days to Meet Goals 10 Frequency of Treatment Other frequency 5x/week Discharge Recommendations OT Discharge Recommendations Home with 20/02 Assist Available,Outpatient PT Transportation Needs at Discharge Private Vehicle
--- NOTE | 2024-05-17 16:57 | CM.DANOTE ---
DCP Assessment Note: Pt is a 68yo female, resident of [place] is s/p R Knee OA with complex tachycardia during procedure. Pt lives in a house with her granddaughter. Pt's Primary Care Provider is Dr. Maira Knight and insurance is [employer]. Reviewed chart and team rounds for pt's medical status and initial discharge needs. DCP met w/patient at bedside; introduced self and role. Patient was found in bed, alert and oriented, cooperative with assessment. Pt confirmed living situation and good support in daugther and family members. Pt expressed preference in returning home tomorrow, 05/18, or when medically cleared (experiencing high BP). PT not able to work with pt yet due to BP. OT recommending home with outpatient PT. Plan: Anticipating pt to discharge home with daughter to transport on 05/18 or when medically stable. CM team will follow closely for coordination of discharge plans. BEN Don Discharge Planning/Care Management Advanced directive, confirm from FAMILY Start: 05/16/24 17:59 Freq: Q24H Status: Active Protocol: Document 05/16/24 17:59 CM (Rec: 05/16/24 18:44 CM [id number]) Advance Directive, confirm on record Time 18:44 Person contacted Pt Copy received No CM Discharge Assessment Start: 05/17/24 16:55 Freq: Status: Active Protocol: Document 05/17/24 16:55 MW (Rec: 05/17/24 16:57 MW [id number]) Discharge Planning Assessment Assigned Design Drafter Chief NI Arvizu DPOA/Assigned Designee Name Katharine Atkinson Contact Information [phone] Advance Directives? Yes Advance Directives on File No History Provided By Patient,Medical Record Has Patient been admitted in last 30 No days? Prior Living Arrangements House Household Members family Type of transporation used prior to Drives own vehicle admit Independent with ADL's Yes Is patient alert and oriented? Yes Caregiver for Another No DME Already Rented / Owned Bath Bench,FWW / Walker Patient/Family Preference Home with Home Health Barriers to Discharge No Discharge Plan Home Transportation Arrangement Elyse Alcantar Referrals Initiated None needed Whiteboard Updated in Patient Room with Yes name and ext. # of Design Drafter Chief Comment [phone] Review Status In Process Please Provide Date Initial DC 05/17/24 Assessment Was Performed Next Review Type Continued Stay Review
--- NOTE | 2024-05-17 17:57 | EKG_ITS ---
[facility] [address] [place] [address] Test Date: 2024-05-17 Pat [facility] Room: 226 Gender: Female Airworthiness Safety Inspector: ALESSIO : 1955 Requested By: Order Number: [id number] Reading MD: Vinny Mariscal Measurements Intervals Strang Rate: 122 P: [place]: QRS: 77 QRSD: 80 T: -75 QT: 266 QTc: 379 Interpretive Statements Atrial fibrillation with rapid ventricular response Low voltage QRS Nonspecific T wave abnormality Electronically Signed On 05-20-2024 15:56:30 PDT by Vinny Mariscal
--- NOTE | 2024-05-17 18:30 | PC.NURSE ---
pt c/o stabbing chest pain to left side of chest 03/09; b/p 118/59; HR 110s-140s; o2 sat 91%; Dr Eduardo notified; EKG done and compared with the one done at noon today; labs ordered but not drawn yet; pt reports pain has decreased to 3/; she reports history of this type chest pain, which she said is sometimes relieved with Dr Mckeon and belching; gideon shanice given
--- NOTE | 2024-05-17 18:56 | PC.NURSE ---
labs being drawn; pt reports chest pain completely relieved; b/p 123/66; HR-120
[2024-05-17 19:38] LABS: Troponin I < 0.012 ng/mL (0.01-0.034)
[2024-05-17] MEDS: LOSARTAN 25 MG TABLET PO (20:56)
[2024-05-17] MEDS: ATORVASTATIN 20 MG TABLET 80 MG PO (20:57)
[2024-05-18] VITALS (34 sets, daily range): BP systolic 94–179; BP diastolic 38–78; PULSE 71–137; RESP 9–37; TEMP 36.1–36.3; O2SAT 90–97
[2024-05-18 03:17] LABS: Add Manual Diff / Slide Review NO; Basophils Absolute Auto 100 /uL (0-100); Basophils Percent Auto 0.7 % (0-2); Eosinophils Absolute Auto 0 /uL (0-450); Eosinophils Percent Auto 0.2 % (2-4); Hematocrit 38.1 % (36-46); Hemoglobin 12.5 g/dL (12.0-16.0); Lymphocytes Absolute Auto 2100 /uL (1100-4500); Mean Corpuscular HGB Conc 32.8 % (30-36); Mean Corpuscular Volume 88.3 fL (80-100); Monocytes Absolute Auto 1500 /uL (0-900); Monocytes Percent Auto 11.8 % (3-14); Neutrophils Absolute Auto 8800 /uL (1500-7000); Neutrophils Percent Auto 70.3 % (50-75); Platelet Count 248 X10^3/uL (150-400); Red Blood Cell Count 4.32 X10^6/uL (4.0-5.2); Red Cell Distribution Width 15.9 % (11.6-14.8); White Blood Cell Count 12.5 X10^3/uL (4.5-11.0)
[2024-05-18 03:43] LABS: Troponin I < 0.012 ng/mL (0.01-0.034)
[2024-05-18] MEDS: LEVOTHYROXINE 75 MCG TABLET 150 MCG PO (06:32)
[2024-05-18] MEDS: METOPROLOL IR 25 MG TABLET PO ×3 (06:33→18:12)
[2024-05-18] MEDS: ACETAMINOPHEN 325 MG TABLET 650 MG PO ×2 (06:33→12:49)
--- NOTE | 2024-05-18 07:21 | PC.NURSE ---
Electron Beam Machine Welder Setter Note-Patient is A/Ox4, denies chest pain, pressure, palpitations, or shortness of breath. Remains A-fib CVR/RVR up to 120s, receiving metoprolol IR Q6h, see vital trends. Tylenol and ice packs given for Rt knee pain, dian RAMOS, Dayan patent.
[2024-05-18] MEDS: PARoxetine 20 MG TABLET PO (08:56)
[2024-05-18] MEDS: dilTIAZem CD 180 MG CAP PO (08:56)
[2024-05-18] MEDS: DOCUSATE 100 MG CAPSULE PO ×2 (08:56→20:18)
[2024-05-18] MEDS: METFORMIN HCL 500 MG TABLET PO (08:56)
[2024-05-18] MEDS: polyethylene glycoL 3350 17 GM POWD.PACK PO (08:57)
[2024-05-18] MEDS: SODIUM CHLORIDE 0.9% FLUSH 10 ML IV ×2 (08:58→20:19)
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
--- NOTE | 2024-05-18 11:15 | PT.IPTN ---
Current Diagnoses Unilateral primary osteoarthritis, right knee (05/16/24) Surgery Performed Operation Date: 05/16/24 12:00 Actual Procedures p Total Knee Arthroplasty - Robot(Right) - Pamela Ruiz MD Physical Therapy Treatment Note M2 PT-IP Current Condition Start: 05/17/24 13:13 Freq: NEEDED Status: Active Protocol: Document 05/17/24 13:35 AB (Rec: 05/17/24 17:08 AB [id number]) Physical Therapy Current Condition Current Condition Evaluation Date 05/17/24 Treatment Diagnosis s/p R TKA; difficulty in walking Onset Date 05/16/24 M3 PT-IP Subjective Start: 05/17/24 13:13 Freq: NEEDED Status: Active Protocol: Document 05/18/24 11:40 TS (Rec: 05/18/24 11:48 TS [id number]) Subjective Physical Therapy Visit Type Type Treatment Note Visit Start Time 11:15 Visit Stop Time 11:40 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 Therapy Pain Assessment Pain When Pain Assessed During Mobility Pain Present Pain Present Pain Reported Location R knee Intensity 7 Scale Used Numeric (0 - 10) Pain Management Techniques Apply Cold,Distraction, Elevation,Modification of Treatment,Re-positioning, Timing of Activity with Medications M4 PT-IP Mobility and Gait Start: 05/17/24 13:13 Freq: NEEDED Status: Active Protocol: Document 05/18/24 11:40 TS (Rec: 05/18/24 11:48 TS [id number]) PT-Bed Mobility Assessment Supine to Sit Supine to Sit Moderate Assistance Sit to Supine Sit to Supine Minimal Assistance,1 Person Assistance Scooting Scooting to Edge of Bed Contact Guard Assistance PT-Transfer Assessment Sit to and From Stand Sit to and from Stand Contact Guard Assistance,1 Person Assistance Equipment Transfer Assistive Device Gait Belt,Front Wheeled Walker Orthotic/Prosthetic Devices or Brace: No Comments Mobility Comments Supine to sit ModA for RLE and 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 STS with FWW CGA. She ambulates with a slow step to gait CGA with FWW. Sit to supine into bed Justino for RLE assist. t was left back in bed, all needs met. Gait Assessment Gait Gait Assistance Required: Contact Guard Assist Distance (Feet) 15 Able to Maintain Weight Bearing Status Yes During Gait Assistive Devices Assistive Device Gait Belt,Front Wheeled Walker Orthotic/Prosthetic Devices or Brace: No Gait Deviations General Gait Pattern Decreased Stride Length,Step- to Gait Factors Limiting Gait Function Factors Limiting Gait Function Decreased Activity Tolerance, Decreased Sensation,Decreased Strength,Limited Range of Motion,Pain,Poor Balance,Poor Safety Awareness PT-Balance Assessment Sitting Balance and Reactions Static Sitting Balance Ability Good Dynamic Sitting Balance Ability Good Standing Balance and Reactions Static Standing Balance Ability Fair Dynamic Standing Balance Ability Fair Device Used FWW M5 PT-IP Objective Assessments Start: 05/17/24 13:13 Freq: NEEDED Status: Active Protocol: Document 05/17/24 13:35 AB (Rec: 05/17/24 17:08 AB [id number]) Orientation Orientation/Cognition Level of Alertness Alert Orientation Name,Place,Situation Language Function Ability No Deficits Noted Safety Awareness Decreased Safety Awareness Memory Description No Deficits Noted Gross Range of Motion Lower Extremity ROM Assessment Right Impaired Impairments R knee flexion: ~ 50 deg R knee extension: ~ 20 deg less to 0 Strength Lower Extremity Strength Assessment Right Impaired Hip 3+/5 Knee 3+/5 Coordination Assessment Gross Coordination Gross Coordination WNL Sensation Assessment Sensation Sensation Description Numbness Comments Sensation Comments chronic numbness on all toes Muscle Tone Muscle Tone WNL Yes M6 PT-IP Treatment Start: 05/17/24 13:13 Freq: NEEDED Status: Active Protocol: Document 05/18/24 11:40 TS (Rec: 05/18/24 11:48 [id number]) Physical Therapy Treatment Education Education Provided Precautions,Weight Bearing Status,Post-Op Packet,Safety M7 PT-IP Assessment and Plan Start: 05/17/24 13:13 Freq: NEEDED Status: Active Protocol: Document 05/18/24 11:40 TS (Rec: 05/18/24 11:48 [id number]) PT Summary Assessment and Plan Potential Rehabilitation Potential Fair Summary Impairments Pain,ROM,Strength,Balance, Coordination,Sensation,Tone, Cognition,Bed Mobility, Transfers,Gait,Activity Tolerance Progress Towards Goals Slow Progress due to Pain Assessment Summary brittany is making some progress with her mobility but remains limited. She is ModA for supine to sit for RLE assistance. She requried decreased assist for STS with FWW. She progressed her gait to ~15' with decreased assist this morning. PT is recommending Home 20/02 vs SNF. Pt has family at home who can assist her. She does report her power is currentyl out at home. Pt will need to complete 3 steps. Goals Bed Mobility Goal Standby Assistance Transfer Goal Standby Assistance,Front Wheeled Walker Gait Goal Standby Assistance,Front Wheel Walker Gait Distance 50 Other Goals improve bed mobility, transfers and ambulation using FWW ~ 150 ft SBA up/down 3 steps L rail ascending SBA Days to Meet Goals 10 Frequency of Treatment Other frequency 1-2x/day Treatment Plan Physical Therapy Treatment Plan Bed Mobility Training,Transfer Training,Gait Training, Therapeutic Exercise,Balance Retraining,Post Op Education, Discharge Planning,Hot or Cold Pack,Neuromuscular Re-ed, Coordination Retraining,Manual Therapy Weight Bearing Status Weight Bearing Status Weight Bear as Tolerated Allowed Weight Bearing Amount (enter % RLE WBAT or #) (%) Recommendations To Nursing Amount of Assist Needed 2 Person Assist Discharge Recommendations PT Discharge Recommendations Home Health,Home vs SNF Transportation Needs at Discharge Private Vehicle,Wheelchair/ Cabulance
--- NOTE | 2024-05-18 14:50 | PT.IPTN ---
Current Diagnoses Unilateral primary osteoarthritis, right knee (05/16/24) Surgery Performed Operation Date: 05/16/24 12:00 Actual Procedures p Total Knee Arthroplasty - Robot(Right) - Pamela Ruiz MD Physical Therapy Treatment Note M2 PT-IP Current Condition Start: 05/17/24 13:13 Freq: NEEDED Status: Active Protocol: Document 05/17/24 13:35 AB (Rec: 05/17/24 17:08 AB [id number]) Physical Therapy Current Condition Current Condition Evaluation Date 05/17/24 Treatment Diagnosis s/p R TKA; difficulty in walking Onset Date 05/16/24 M3 PT-IP Subjective Start: 05/17/24 13:13 Freq: NEEDED Status: Active Protocol: Document 05/18/24 14:50 AB (Rec: 05/18/24 16:40 AB [id number]) Subjective Physical Therapy Visit Type Type Treatment Note Visit Start Time 14:50 Visit Stop Time 15:40 Number of CRM SOLUTION ARCHITECT Visits 0 Physical Therapy Visit Comments Patient Comments agreed to do PT Therapy Pain Assessment Pain When Pain Assessed At Rest Pain Present Pain Present Pain Reported Location R knee Scale Used pain scale not stated Pain Management Techniques Apply Cold,Distraction, Modification of Treatment,Re- positioning,Timing of Activity with Medications M4 PT-IP Mobility and Gait Start: 05/17/24 13:13 Freq: NEEDED Status: Active Protocol: Document 05/18/24 14:50 AB (Rec: 05/18/24 16:40 AB [id number]) PT-Bed Mobility Assessment Supine to Sit Supine to Sit Minimal Assistance,Head of Bed Elevated Sit to Supine Sit to Supine Moderate Assistance,1 Person Assistance,Bedrails PT-Transfer Assessment Sit to and From Stand Sit to and from Stand Moderate Assistance,1 Person Assistance,Use of Upper Extremities Equipment Transfer Assistive Device Gait Belt,Front Wheeled Walker Orthotic/Prosthetic Devices or Brace: No Transfers Transfer Destination Toilet Transfer Technique ambulated Transfer Ability Level of Assist Moderate Assistance,1 Person Assistance,Use of Upper Extremities Comments Mobility Comments pt supine in bed and agreed to do PT. IN: 78 bpm. heel slides completed prior to mobility. pt completed supine to sit min A with HOB elevated. requested to use the toilet. completed sit to stand mod A and cues and pt ambulated using FWW mod A and cues. pt with increase R knee flexion during standing and ambulation . cued to correct. (+) slight R knee buckling. max A for controlled descent to the toilet. assisted pt with brief management. completed sit to stand from the toilet using grab bar mod A and cues and ambulated to the sink using FWW mod A and cues for quads contraction on RLE. pt was able to maintain standing min A leaning against counter for support while completing handwashing. pt refused further activities and c/o slight dizziness and wants to go back in bed. ambulated to the EOB using fWW mod A. completed sit to supine mod A for elevating R LE up in bed. positioned pt in bed. call light and table placed within reach. informed pt regarding SNF rehab and agreed. stated: as long as insurance covers it. Gait Assessment Gait Gait Assistance Required: Moderate Assistance Distance (Feet) 20 Able to Maintain Weight Bearing Status Yes During Gait Assistive Devices Assistive Device Gait Belt,Front Wheeled Walker Orthotic/Prosthetic Devices or Brace: Yes Gait Deviations General Gait Pattern Antalgic,Ataxic,Decreased Feet Clearance,Step-to Gait Factors Limiting Gait Function Factors Limiting Gait Function Decreased Activity Tolerance, Decreased Strength,Difficulty Following Directions,Limited Range of Motion,Pain,Poor Balance,Poor Safety Awareness M5 PT-IP Objective Assessments Start: 05/17/24 13:13 Freq: NEEDED Status: Active Protocol: Document 05/17/24 13:35 AB (Rec: 05/17/24 17:08 AB [id number]) Orientation Orientation/Cognition Level of Alertness Alert Orientation Name,Place,Situation Language Function Ability No Deficits Noted Safety Awareness Decreased Safety Awareness Memory Description No Deficits Noted Gross Range of Motion Lower Extremity ROM Assessment Right Impaired Impairments R knee flexion: ~ 50 deg R knee extension: ~ 20 deg less to 0 Strength Lower Extremity Strength Assessment Right Impaired Hip 3+/5 Knee 3+/5 Coordination Assessment Gross Coordination Gross Coordination WNL Sensation Assessment Sensation Sensation Description Numbness Comments Sensation Comments chronic numbness on all toes Muscle Tone Muscle Tone WNL Yes M6 PT-IP Treatment Start: 05/17/24 13:13 Freq: NEEDED Status: Active Protocol: Document 05/18/24 14:50 AB (Rec: 05/18/24 16:40 AB [id number]) Physical Therapy Treatment Exercises Exercises Heel Slides Education Education Provided Safety M7 PT-IP Assessment and Plan Start: 05/17/24 13:13 Freq: NEEDED Status: Active Protocol: Document 05/18/24 14:50 AB (Rec: 05/18/24 16:40 AB [id number]) PT Summary Assessment and Plan Potential Rehabilitation Potential Fair Summary Impairments Pain,ROM,Strength,Balance, Coordination,Sensation,Tone, Cognition,Bed Mobility, Transfers,Gait,Activity Tolerance Progress Towards Goals Slow Progress due to Medical Issues,Slow Progress due to Activity Tolerance,Slow Progress - Other Assessment Summary pt progressing slowly with mobility. pt requires mod A for transfers and ambulation using FWW with slight R knee buckling and needed assist and cues for quads activation. pt also presents with decrease activity tolerance affecting mobility level. pt will require 20/02 assist. Currently, pt is not appropriate to do stair climbing. will continue to assess progress but pt will benefit from SNF rehab to improve overall strength and mobility independence. Goals Bed Mobility Goal Standby Assistance Transfer Goal Standby Assistance,Front Wheeled Walker Gait Goal Standby Assistance,Front Wheel Walker Gait Distance 50 Other Goals improve bed mobility, transfers and ambulation using FWW ~ 150 ft SBA up/down 3 steps L rail ascending SBA Days to Meet Goals 10 Frequency of Treatment Other frequency 1-2x/day Treatment Plan Physical Therapy Treatment Plan Bed Mobility Training,Transfer Training,Gait Training, Therapeutic Exercise,Balance Retraining,Post Op Education, Discharge Planning,Hot or Cold Pack,Neuromuscular Re-ed, Coordination Retraining,Manual Therapy Weight Bearing Status Weight Bearing Status Weight Bear as Tolerated Allowed Weight Bearing Amount (enter % RLE WBAT or #) (%) Recommendations To Nursing Amount of Assist Needed 1 Person Assist Discharge Recommendations PT Discharge Recommendations SNF Rehab Transportation Needs at Discharge Private Vehicle,Wheelchair/ Cabulance
[2024-05-18] MEDS: OXYCODONE IR 5 MG TABLET PO (15:05)
--- NOTE | 2024-05-18 15:18 | P.PN_ITS ---
Subjective Subjective Date Patient Seen: 05/18/24 Time Patient Seen: 08:25 Interval history: 68-year-old woman followed by Dr. Minerva Silver of [facility] Cardiology underwent right total knee replacement today without surgical complication and till she experienced a wide complex tachycardia at 150 beats per minute. This was felt to be ventricular tachycardia. She has a history of atrial fibrillation but states this has been well controlled without complications. She was administered IV amiodarone 300 mg and IV metoprolol with subsequent resolution of the wide complex rhythm and return to atrial fibrillation in the 90s to 100 range. Echocardiography performed 04/25/2024 showed normal left ventricular thickness, size, wall motion and systolic function with ejection fraction 55- 60%, normal right ventricular size and function and no significant abnormalities. According to the patient she had normal cardiac stress testing as well preoperatively. She is asymptomatic without chest pain or breathing problems. she is seen in the intensive care unit noting only mild postoperative knee pain. she has a history of prediabetes and lost 40 lb of weight before surgery taking was emphatic. Interval history: Patient has remained stable in atrial fibrillation on telemetry in the 100 range. No new events. Exam Vital Signs (past 8 hours): - 05/18/24 07:30 05/18/24 07:36 05/18/24 07:36 Pulse Rate 95 H 92 H Respiratory Rate 18 15 Blood Pressure 119/58 L Pulse Oximetry 94 Oxygen Delivery Method Oxygen Flow Rate Fraction of Inspired Oxygen 05/18/24 08:00 05/18/24 08:30 05/18/24 08:41 Pulse Rate 94 H 112 H Respiratory Rate 17 37 H Blood Pressure Pulse Oximetry 94 95 93 Oxygen Delivery Method Nasal Cannula Oxygen Flow Rate 1 Fraction of Inspired Oxygen 05/18/24 08:43 05/18/24 08:43 05/18/24 09:00 Pulse Rate 102 H 94 H Respiratory Rate 19 13 Blood Pressure 94/51 L Pulse Oximetry 96 92 Oxygen Delivery Method Oxygen Flow Rate Fraction of Inspired Oxygen 05/18/24 09:30 05/18/24 10:00 05/18/24 10:30 Pulse Rate 93 H 94 H 99 H Respiratory Rate 17 17 17 Blood Pressure Pulse Oximetry 91 94 Oxygen Delivery Method Oxygen Flow Rate Fraction of Inspired Oxygen 05/18/24 11:00 05/18/24 11:30 05/18/24 12:00 Pulse Rate 96 H 137 H 102 H Respiratory Rate 15 27 H 16 Blood Pressure Pulse Oximetry 90 L Oxygen Delivery Method Oxygen Flow Rate Fraction of Inspired Oxygen 05/18/24 12:19 05/18/24 12:19 05/18/24 15:08 Pulse Rate 104 H 71 Respiratory Rate 19 19 Blood Pressure 110/64 Pulse Oximetry 93 95 Oxygen Delivery Method Oxygen Flow Rate 0 Fraction of Inspired Oxygen Fraction of Inspired Oxygen 24 SaO2/FiO2 Ratio 387 Oxygen Delivery Method Nasal Cannula Oxygen Flow Rate 0 Narrative Exam Narrative: GENERAL: This is a well-nourished, well-developed patient, in no apparent distress. EYES: Pupils equal round and reactive. Extraocular motions intact. No scleral icterus. No injection or drainage. ENT: Mucous membranes pink and moist. NECK: Supple, nontender, no meningeal signs. CARDIOVASCULAR: Regular rate and rhythm without murmurs, gallops, or rubs. RESPIRATORY: Clear to auscultation. GASTROINTESTINAL: Abdomen soft, non-tender, nondistended. EXTREMITIES: No clubbing, cyanosis, or edema. left knee bandage clean, dry and intact. NEUROLOGIC: Alert, oriented, speech fluent, full upper and lower motor strength, no focal deficits evident. DERMATOLOGIC: No rashes or skin lesions. Objective Labs 05/18/24 02:58 05/17/24 03:48 Labs: Laboratory Results - last 24 hr 05/17/24 05/18/24 19:07 02:58 WBC 12.5 H RBC 4.32 Hgb 12.5 Hct 38.1 MCV 88.3 MCH 29.0 MCHC 32.8 RDW 15.9 H Plt Count 248 Neut % (Auto) 70.3 Lymph % (Auto) 17.0 L [place] % (Auto) 11.8 Eos % (Auto) 0.2 L Baso % (Auto) 0.7 Neut # (Auto) 8800 H Lymph # (Auto) 2100 [place] # (Auto) 1500 H Eos # (Auto) 0 Baso # (Auto) 100 Troponin I < 0.012 < 0.012 [facility] Medical History BMI 40.0-44.9, adult (05/06/24) CAD (coronary artery disease) History of COVID-19 (2021) Difficult intravenous access Anesthesia PTSD (post-traumatic stress disorder) Depression Anxiety Osteoarthritis Breast cancer, right (~2009) Diabetes (~2018) Leon's disease Hypothyroid History of half-way anticoagulant use HLD (hyperlipidemia) HTN (hypertension) NURA (obstructive sleep apnea) Cataract, left eye Seizures TMJ (dislocation of temporomandibular joint) Afib (08/2017) Surgical History H/O right mastectomy (2010) Hx of bilateral cataract extraction (2022) History of total left knee replacement (06/19/21) History of lumpectomy of right breast Hx of tonsillectomy Hx of laparoscopy History of hysterectomy History of cholecystectomy History of cardiac cath (~04/2021) Social History household members: family Smoking Status: Former smoker alcohol intake: current Assessment & Plan Assessment & Plan narrative: 1. Perioperative ventricular tachycardia, resolved without recurrence. She is doing well at this point and medically stable. Rhythm strips intraoperatively demonstrated a wide complex regular tachycardia at 158 beats per minute, resolved following amiodarone infusion x1 dose. This was not atrial fibrillation with aberrancy. She remains completely asymptomatic. Normal electrolytes, ruled out for myocardial infarction. Continue to monitor. Resolving leukocytosis noted 2. Chronic atrial fibrillation. Appears clinically stable. Continue routine diltiazem and increase metoprolol to 25 mg every 6 hours. May resume home dose of metoprolol ER 50 mg nightly at discharge. 3. Chronic anticoagulation. Continue routine apixaban. 4. Hypertension. Continue routine medication. Appears adequately controlled. 5. Hyperlipidemia. Continue rosuvastatin. 6. Impaired fasting glucose. 7. Depression. Continue paroxetine. 8. Hypothyroidism. Continue routine medication. TSH normal. 9. DVT prophylaxis. Addressed on Eliquis. 10. Code status: Full code. I wish to thank Dr. Ruiz for consulting the hospitalist service on this delightful patient. We will follow with you during her hospitalization. She appears to be medically stable and can be discharged on her home medications when cleared by Orthopedics. Time-Based Coding :: [TOTAL MINUTES] spent with patient and on the chart (including review of chart, obtaining history, exam, reviewing outside data, placing orders, documenting exam and treatment plan, and counseling patient) on [DATE]. Quality VTE Deep Vein Thrombosis/Pulmonary Embolism Present on Admission: No [facility] PROFEE Charge codes Subsequent inpatient/observation care: [id number]
[2024-05-18] MEDS: HYDROMORPHONE 0.5 MG INJ IV (15:57)
[2024-05-18] MEDS: OXYCODONE IR 10 MG TABLET PO (15:57)
[2024-05-18] MEDS: APIXABAN 5 MG TABLET PO (20:18)
[2024-05-18] MEDS: LOSARTAN 25 MG TABLET PO (20:18)
[2024-05-18] MEDS: ATORVASTATIN 20 MG TABLET 80 MG PO (20:18)
[2024-05-19] VITALS: BP 108/57; PULSE 93; RESP 16; TEMP 36.3; O2SAT 100
[2024-05-19] MEDS: METOPROLOL IR 25 MG TABLET PO ×2 (00:23→05:22)
[2024-05-19] MEDS: ACETAMINOPHEN 325 MG TABLET 650 MG PO (01:12)
[2024-05-19 04:58] VITALS: BP 124/50; PULSE 107; RESP 16; TEMP 35.8; O2SAT 94
[2024-05-19] MEDS: LEVOTHYROXINE 75 MCG TABLET 150 MCG PO (05:22)
[2024-05-19 08:00] VITALS: BP 130/78; PULSE 87; RESP 15; TEMP 36.3; O2SAT 92
[2024-05-19] MEDS: PARoxetine 20 MG TABLET PO (08:04)
[2024-05-19] MEDS: METFORMIN HCL 500 MG TABLET PO (08:04)
[2024-05-19] MEDS: DOCUSATE 100 MG CAPSULE PO (08:04)
[2024-05-19] MEDS: dilTIAZem CD 180 MG CAP PO (08:04)
[2024-05-19] MEDS: APIXABAN 5 MG TABLET PO (08:04)
--- NOTE | 2024-05-19 09:27 | P.PN_ITS ---
Subjective Subjective Date Patient Seen: 05/19/24 Time Patient Seen: 09:10 Interval history: 68-year-old woman followed by Dr. Minerva Silver of [facility] Cardiology underwent right total knee replacement today without surgical complication and till she experienced a wide complex tachycardia at 150 beats per minute. This was felt to be ventricular tachycardia. She has a history of atrial fibrillation but states this has been well controlled without complications. She was administered IV amiodarone 300 mg and IV metoprolol with subsequent resolution of the wide complex rhythm and return to atrial fibrillation in the 90s to 100 range. Echocardiography performed 04/25/2024 showed normal left ventricular thickness, size, wall motion and systolic function with ejection fraction 55- 60%, normal right ventricular size and function and no significant abnormalities. According to the patient she had normal cardiac stress testing as well preoperatively. She is asymptomatic without chest pain or breathing problems. she is seen in the intensive care unit noting only mild postoperative knee pain. she has a history of prediabetes and lost 40 lb of weight before surgery taking was emphatic. Interval history: Patient has remained stable in atrial fibrillation on telemetry in the 80-90s range. No chest pain or breathing problems. She is hoping to go home today. Exam Vital Signs (past 8 hours): - 05/19/24 04:58 05/19/24 07:00 05/19/24 08:00 Temperature 96.4 F L 97.3 F L Pulse Rate 107 H 87 Respiratory Rate 16 15 Blood Pressure 124/50 L 130/78 Pulse Oximetry 94 92 Oxygen Delivery Method Room Air Oxygen Flow Rate 0 Fraction of Inspired Oxygen 24 SaO2/FiO2 Ratio 387 Oxygen Delivery Method Room Air Oxygen Flow Rate 0 Narrative Exam Narrative: GENERAL: This is a well-nourished, well-developed patient, in no apparent distress. EYES: Pupils equal round and reactive. Extraocular motions intact. No scleral icterus. No injection or drainage. ENT: Mucous membranes pink and moist. NECK: Supple, nontender, no meningeal signs. CARDIOVASCULAR: Regular rate and rhythm without murmurs, gallops, or rubs. RESPIRATORY: Clear to auscultation. GASTROINTESTINAL: Abdomen soft, non-tender, nondistended. EXTREMITIES: No clubbing, cyanosis, or edema. right knee bandage clean, dry and intact. NEUROLOGIC: Alert, oriented, speech fluent, full upper and lower motor strength, no focal deficits evident. DERMATOLOGIC: No rashes or skin lesions. Objective Labs 05/18/24 02:58 05/17/24 03:48 [facility] Medical History BMI 40.0-44.9, adult (05/06/24) CAD (coronary artery disease) History of COVID-19 (2021) Difficult intravenous access Anesthesia PTSD (post-traumatic stress disorder) Depression Anxiety Osteoarthritis Breast cancer, right (~2009) Diabetes (~2017) Leon's disease Hypothyroid History of fdc anticoagulant use HLD (hyperlipidemia) HTN (hypertension) NURA (obstructive sleep apnea) Cataract, left eye Seizures TMJ (dislocation of temporomandibular joint) Afib (08/2017) Surgical History H/O right mastectomy (2010) Hx of bilateral cataract extraction (2022) History of total left knee replacement (06/19/21) History of lumpectomy of right breast Hx of tonsillectomy Hx of laparoscopy History of hysterectomy History of cholecystectomy History of cardiac cath (~04/2021) Social History household members: family Smoking Status: Former smoker alcohol intake: current Assessment & Plan Assessment & Plan narrative: 1. Perioperative ventricular tachycardia, resolved without recurrence. She is doing well at this point and remains medically stable. Rhythm strips intraoperatively demonstrated a wide complex regular tachycardia at 158 beats per minute, resolved following amiodarone infusion x1 dose. This was not atrial fibrillation with aberrancy. She remains completely asymptomatic. Normal electrolytes, ruled out for myocardial infarction. She is clear for discharge on her usual home medications. 2. Chronic atrial fibrillation. Appears clinically stable. May resume home medications at discharge. 3. Chronic anticoagulation. Continue routine apixaban. 4. Hypertension. Continue routine medication. Appears adequately controlled. 5. Hyperlipidemia. Continue rosuvastatin. 6. Impaired fasting glucose. 7. Depression. Continue paroxetine. 8. Hypothyroidism. Continue routine medication. TSH normal. 9. DVT prophylaxis. Addressed on Eliquis. 10. Code status: Full code. I wish to thank Dr. Ruiz for consulting the hospitalist service on this delightful patient. We will follow with you during her hospitalization. She appears to be medically stable and can be discharged on her home medications when cleared by Orthopedics. Time-Based Coding :: [TOTAL MINUTES] spent with patient and on the chart (including review of chart, obtaining history, exam, reviewing outside data, placing orders, documenting exam and treatment plan, and counseling patient) on [DATE]. Quality VTE Deep Vein Thrombosis/Pulmonary Embolism Present on Admission: No PROFEE Charge codes Subsequent inpatient/observation care: [id number]
--- NOTE | 2024-05-19 10:38 | P.PN_ITS ---
Exam Vital Signs (past 8 hours): - 05/19/24 04:58 05/19/24 07:00 05/19/24 08:00 Temperature 96.4 F L 97.3 F L Pulse Rate 107 H 87 Respiratory Rate 16 15 Blood Pressure 124/50 L 130/78 Pulse Oximetry 94 92 Oxygen Delivery Method Room Air Oxygen Flow Rate 0 Fraction of Inspired Oxygen 24 SaO2/FiO2 Ratio 387 Oxygen Delivery Method Room Air Oxygen Flow Rate 0 Objective Labs 05/18/24 02:58 05/17/24 03:48 [facility] Medical History BMI 40.0-44.9, adult (05/06/24) CAD (coronary artery disease) History of COVID-19 (2021) Difficult intravenous access Anesthesia PTSD (post-traumatic stress disorder) Depression Anxiety Osteoarthritis Breast cancer, right (~2009) Diabetes (~2017) Leon's disease Hypothyroid History of fci anticoagulant use HLD (hyperlipidemia) HTN (hypertension) NURA (obstructive sleep apnea) Cataract, left eye Seizures TMJ (dislocation of temporomandibular joint) Afib (08/2017) Surgical History H/O right mastectomy (2010) Hx of bilateral cataract extraction (2022) History of total left knee replacement (06/19/21) History of lumpectomy of right breast Hx of tonsillectomy Hx of laparoscopy History of hysterectomy History of cholecystectomy History of cardiac cath (~04/2021) Social History household members: family Smoking Status: Former smoker alcohol intake: current Assessment & Plan Assessment & Plan narrative: Patient is admitted after surgery. POD#3 s/p right TKA. Patient has been stable and progressing with physical therapy. Patient is neurovascularly intact on exam. Patient has no signs or symptoms of DVT. Patient's dressing is clean dry and intact. Will plan to d/c today to home. Time-Based Coding :: [TOTAL MINUTES] spent with patient and on the chart (including review of chart, obtaining history, exam, reviewing outside data, placing orders, documenting exam and treatment plan, and counseling patient) on [DATE]. Quality VTE Deep Vein Thrombosis/Pulmonary Embolism Present on Admission: No
--- NOTE | 2024-05-19 10:56 | PT.IPTN ---
Current Diagnoses Unilateral primary osteoarthritis, right knee (05/16/24) Surgery Performed Operation Date: 05/16/24 12:00 Actual Procedures p Total Knee Arthroplasty - Robot(Right) - Pamela Ruiz MD Physical Therapy Treatment Note M2 PT-IP Current Condition Start: 05/17/24 13:13 Freq: NEEDED Status: Discharge Protocol: Document 05/17/24 13:35 AB (Rec: 05/17/24 17:08 AB [id number]) Physical Therapy Current Condition Current Condition Evaluation Date 05/17/24 Treatment Diagnosis s/p R TKA; difficulty in walking Onset Date 05/16/24 M3 PT-IP Subjective Start: 05/17/24 13:13 Freq: NEEDED Status: Discharge Protocol: Document 05/19/24 10:28 KS (Rec: 05/19/24 12:31 KS [id number]) Subjective Physical Therapy Visit Type Type Treatment Note Visit Start Time 10:28 Visit Stop Time 10:56 Number of [employer]ORDINATOR Visits 1 Physical Therapy Visit Comments Patient Comments agreed to do PT Therapy Pain Assessment Pain When Pain Assessed At Rest Pain Present Pain Present Pain Reported Location R knee Scale Used pain scale not stated Pain Management Techniques Distraction,Modification of Treatment,Re-positioning, Timing of Activity with Medications M4 PT-IP Mobility and Gait Start: 05/17/24 13:13 Freq: NEEDED Status: Discharge Protocol: Document 05/19/24 10:28 KS (Rec: 05/19/24 12:31 KS [id number]) PT-Bed Mobility Assessment Supine to Sit Supine to Sit Minimal Assistance,Head of Bed Elevated Sit to Supine Sit to Supine Minimal Assistance Scooting Scooting to Edge of Bed Contact Guard Assistance PT-Transfer Assessment Sit to and From Stand Sit to and from Stand Minimal Assistance,1 Person Assistance,Use of Upper Extremities Equipment Transfer Assistive Device Gait Belt,Front Wheeled Walker Orthotic/Prosthetic Devices or Brace: No Transfers Transfer Destination Bed Transfer Technique ambulated Transfer Ability Level of Assist Minimal Assistance,1 Person Assistance Comments Mobility Comments Pt in bed upon arrival, needs encouragement to participate. Min A for bed mobility and sit <>stand w/ FWW. C/o increased pain w/ WB. Pt ambulated ~15 ft before needing to return to bed, unable to do stairs at this time due to high level of fatigue. Left in bed with all needs in reach. Gait Assessment Gait Gait Assistance Required: Minimum Assistance Distance (Feet) 15 Able to Maintain Weight Bearing Status Yes During Gait Assistive Devices Assistive Device Gait Belt,Front Wheeled Walker Orthotic/Prosthetic Devices or Brace: Yes Gait Deviations General Gait Pattern Antalgic,Ataxic,Decreased Feet Clearance,Step-to Gait Factors Limiting Gait Function Factors Limiting Gait Function Decreased Activity Tolerance, Decreased Strength,Difficulty Following Directions,Limited Range of Motion,Pain,Poor Balance,Poor Safety Awareness Stair Climbing Assessment Comments Stair Climbing Comments unable due to fatigue PT-Balance Assessment Sitting Balance and Reactions Static Sitting Balance Ability Good Dynamic Sitting Balance Ability Good Standing Balance and Reactions Static Standing Balance Ability Fair Dynamic Standing Balance Ability Fair Device Used FWW M5 PT-IP Objective Assessments Start: 05/17/24 13:13 Freq: NEEDED Status: Discharge Protocol: Document 05/17/24 13:35 AB (Rec: 05/17/24 17:08 AB [id number]) Orientation Orientation/Cognition Level of Alertness Alert Orientation Name,Place,Situation Language Function Ability No Deficits Noted Safety Awareness Decreased Safety Awareness Memory Description No Deficits Noted Gross Range of Motion Lower Extremity ROM Assessment Right Impaired Impairments R knee flexion: ~ 50 deg R knee extension: ~ 20 deg less to 0 Strength Lower Extremity Strength Assessment Right Impaired Hip 3+/5 Knee 3+/5 Coordination Assessment Gross Coordination Gross Coordination WNL Sensation Assessment Sensation Sensation Description Numbness Comments Sensation Comments chronic numbness on all toes Muscle Tone Muscle Tone WNL Yes M6 PT-IP Treatment Start: 05/17/24 13:13 Freq: NEEDED Status: Discharge Protocol: Document 05/19/24 10:28 KS (Rec: 05/19/24 12:31 KS [id number]) Physical Therapy Treatment Education Education Provided Safety M7 PT-IP Assessment and Plan Start: 05/17/24 13:13 Freq: NEEDED Status: Discharge Protocol: Document 05/19/24 10:28 KS (Rec: 05/19/24 12:31 KS [id number]) PT Summary Assessment and Plan Summary Impairments Pain,ROM,Strength,Balance, Coordination,Sensation,Tone, Cognition,Bed Mobility, Transfers,Gait,Activity Tolerance Progress Towards Goals Slow Progress due to Medical Issues,Slow Progress due to Activity Tolerance,Slow Progress - Other Assessment Summary Pt limited by low tolerance for acitvity and pain. Min A for ambulation w/ FWW - can only tolerate short distances. Refused to practice stairs due to fatigue , however does believe she can do them at home w/ the help of her daughter and granddaughter who are both CNAs staying with her. Goals Bed Mobility Goal Standby Assistance Transfer Goal Standby Assistance,Front Wheeled Walker Gait Goal Standby Assistance,Front Wheel Walker Gait Distance 50 Other Goals improve bed mobility, transfers and ambulation using FWW ~ 150 ft SBA up/down 3 steps L rail ascending SBA Days to Meet Goals 10 Frequency of Treatment Other frequency 1-2x/day Treatment Plan Physical Therapy Treatment Plan Bed Mobility Training,Transfer Training,Gait Training, Therapeutic Exercise,Balance Retraining,Post Op Education, Discharge Planning,Hot or Cold Pack,Neuromuscular Re-ed, Coordination Retraining,Manual Therapy Weight Bearing Status Weight Bearing Status Weight Bear as Tolerated Allowed Weight Bearing Amount (enter % RLE WBAT or #) (%) Recommendations To Nursing Amount of Assist Needed 1 Person Assist Discharge Recommendations PT Discharge Recommendations SNF Rehab Transportation Needs at Discharge Private Vehicle,Wheelchair/ Cabulance
== END 2024-05-19 11:37 | disposition home or self-care (01) | DRG 470 ==
LOC: OR 05-17 12:05 → ICU 05-17 12:05 → AC 05-18 12:37
PROVIDERS: Admitting Provider Orthopaedic Surgery; PCP Internal Medicine; Referring Provider Orthopaedic Surgery; Visit Provider Orthopaedic Surgery
PROC: 0SRC0JZ Replacement of Right Knee Joint with Synthetic Substitute, Open Approach (ICD-10-PCS; CPT 27447; principal; 2024-05-16 12:00)
DX: M17.11 Unilateral primary osteoarthritis, right knee (principal); I47.20 Ventricular tachycardia, unspecified; I48.20 Chronic atrial fibrillation, unspecified; I10 Essential (primary) hypertension; E78.5 Hyperlipidemia, unspecified; R73.01 Impaired fasting glucose; F32.A Depression, unspecified; E03.9 Hypothyroidism, unspecified; Z87.891 Personal history of nicotine dependence; Z79.01 Long term (current) use of anticoagulants
CPT/HCPCS: 36415; 73560; 80048; 80053; 83735; 84443; 84484; 85025; 87797; 93005; 97116; 97163; 97166; 97530; C1776; C9290; J0171; J0690; J1100; J1171; J1200; J1940; J2405; J2704; J3010; J3490